=== PATIENT | female | born 1965 | race Caucasian/White ===

== ENCOUNTER 2017-11-04 19:29 | Inpatient (IN) | payer OTHER ==
[2017-11-04 21:37] LABS: ADD MAN DIFF? NO
[2017-11-04] MEDS: LABETALOL HCL 20MG INJ IV ×2 (21:38→22:37)
[2017-11-04] MEDS: CLOPIDOGREL 75 MG TAB PO (21:38)
[2017-11-04 21:39] LABS: BASOPHIL # 0.1 10^3/ul (0.0-0.1); BASOPHILS % 0.6 % (0.0-2.0); EOSINOPHILS # 0.2 10^3/ul (0.0-0.5); EOSINOPHILS % 1.9 % (0.0-7.0); HEMATOCRIT 36.4 % (37.0-47.0); HEMOGLOBIN 12.1 g/dl (12.0-16.0); LYMPHOCYTES # 2.8 10^3/ul (0.8-2.9); LYMPHOCYTES % 26.9 % (15.0-51.0); MEAN CORPUSCULAR HEMOGLOBIN 28.3 pg (29.0-33.0); MEAN CORPUSCULAR HGB CONC 33.2 g/dl (32.0-37.0); MEAN PLATELET VOLUME 11.3 fl (7.4-10.4); MONOCYTE # 0.5 10^3/ul (0.3-0.9); MONOCYTES % 4.7 % (0.0-11.0); NEUTROPHIL # 6.7 10^3/ul (1.6-7.5); NEUTROPHILS % 65.5 % (39.0-77.0); PLATELET COUNT 363 10^3/UL (140-415); RED BLOOD COUNT 4.28 10^6/ul (4.20-5.40); RED CELL DISTRIBUTION WIDTH 14.1 % (11.5-14.5)
[2017-11-04 21:39] LABS: WHITE BLOOD COUNT 10.2 10^3/ul (4.8-10.8)
[2017-11-04 22:06] LABS: ANION GAP 8 (8-16); BLOOD UREA NITROGEN 38 mg/dl (7-20); CALCIUM 7.9 mg/dl (8.4-10.2); CARBON DIOXIDE 24 mmol/L (21-31); CHLORIDE 108 mmol/L (97-110); CREATININE 4.54 mg/dl (0.44-1.00); GLUCOSE 315 mg/dl (70-220); POTASSIUM 3.3 mmol/L (3.5-5.1); SODIUM 137 mmol/L (135-144)
[2017-11-04 22:23] LABS: B-TYPE NATRIURETIC PEPTIDE 8220 PG/ML (0-125); TROPONIN-I 0.018 ng/ml (0.00-0.12)
[2017-11-04] MEDS: hydrALAzine 20 MG INJ IV (23:51)
[2017-11-05] MEDS: SOD CHLORIDE 0.9% 1,000 ML IV (00:50)
[2017-11-05] MEDS ORDERED: NACL 0.9% 3 ML SYG IV (02:00)
[2017-11-05] MEDS ORDERED: GLUCAGON 1 MG INJ IM (02:25)
[2017-11-05] MEDS ORDERED: GLUCOSE GEL 15 GRAM TUBE PO ×2 (02:25)
[2017-11-05] MEDS ORDERED: DEXTROSE 50% 50 ML SYRINGE IV ×2 (02:25)
[2017-11-05] MEDS: POTASSIUM CHLORIDE (SR) 20 MEQ TAB PO ×2 (02:30→09:06)
[2017-11-05] MEDS: hydrALAzine 20 MG INJ IV ×3 (02:35→17:59)
[2017-11-05 04:37] LABS: CREATINE KINASE 606 IU/L (23-200)
[2017-11-05 04:45] LABS: CK INDEX 0.8; CK-MB 4.74 ng/ml (0.0-2.4); TROPONIN-I 0.044 ng/ml (0.00-0.12)
[2017-11-05] MEDS: LEVALBUTEROL (NEB) 0.63 MG/3 ML AMP HHN (05:44)
[2017-11-05 06:00] LABS: ADD MAN DIFF? NO
[2017-11-05 06:06] LABS: BASOPHIL # 0.1 10^3/ul (0.0-0.1); BASOPHILS % 0.8 % (0.0-2.0); EOSINOPHILS # 0.1 10^3/ul (0.0-0.5); EOSINOPHILS % 1.3 % (0.0-7.0); HEMATOCRIT 33.9 % (37.0-47.0); HEMOGLOBIN 11.2 g/dl (12.0-16.0); LYMPHOCYTES # 2.3 10^3/ul (0.8-2.9); LYMPHOCYTES % 27.3 % (15.0-51.0); MEAN CORPUSCULAR HEMOGLOBIN 28.5 pg (29.0-33.0); MEAN CORPUSCULAR VOLUME 86.3 fl (82.0-101.0); MEAN PLATELET VOLUME 11.7 fl (7.4-10.4); MONOCYTE # 0.4 10^3/ul (0.3-0.9); MONOCYTES % 4.9 % (0.0-11.0); NEUTROPHIL # 5.4 10^3/ul (1.6-7.5); NEUTROPHILS % 65.3 % (39.0-77.0); NUCLEATED RED BLOOD CELLS # 0.1 10^3/ul (0.0-0.0); NUCLEATED RED BLOOD CELLS% 0.6 /100WBC (0.0-0.0); PLATELET COUNT 325 10^3/UL (140-415); RED BLOOD COUNT 3.93 10^6/ul (4.20-5.40); RED CELL DISTRIBUTION WIDTH 14.6 % (11.5-14.5)
[2017-11-05 06:06] LABS: WHITE BLOOD COUNT 8.3 10^3/ul (4.8-10.8)
[2017-11-05] MEDS: FUROSEMIDE 40 MG INJ IV (06:22)
[2017-11-05 06:28] LABS: D-DIMER 1927.46 ng/ml (<460)
[2017-11-05 06:46] LABS: ALANINE AMINOTRANSFERASE 30 IU/L (13-69); ALKALINE PHOSPHATASE 121 IU/L (42-121); ANION GAP 10 (8-16); ASPARTATE AMINO TRANSFERASE 25 IU/L (15-46); BILIRUBIN,INDIRECT 0.1 mg/dl (0-1.1); BLOOD UREA NITROGEN 43 mg/dl (7-20); CALCIUM 7.6 mg/dl (8.4-10.2); CARBON DIOXIDE 24 mmol/L (21-31); CHLORIDE 108 mmol/L (97-110); CREATININE 4.42 mg/dl (0.44-1.00); GLUCOSE 340 mg/dl (70-220); MAGNESIUM 2.3 mg/dl (1.7-2.5); POTASSIUM 3.3 mmol/L (3.5-5.1); SODIUM 139 mmol/L (135-144)
[2017-11-05 06:47] LABS: ALBUMIN 2.3 g/dl (3.3-4.9); ALBUMIN/GLOBULIN RATIO 0.79; BILIRUBIN,TOTAL 0.1 mg/dl (0.2-1.3); HDL CHOLESTEROL 39 mg/dl (37-92); TOTAL PROTEIN 5.2 g/dl (6.1-8.1); TRIGLYCERIDES 431 mg/dl (0-149)
[2017-11-05 06:57] LABS: CHOL/HDL RATIO 10.6 RATIO; CHOLESTEROL 414 mg/dl (100-200); LDL CHOLESTEROL,CALCULATED 289 mg/dl
[2017-11-05 07:15] LABS: HEMOGLOBIN A1C 9.2 % (0-5.9)
[2017-11-05 07:23] LABS: OSMOLALITY 312 mOsm/kg (280-295)
[2017-11-05 07:44] LABS: ADD UMIC YES; UR ASCORBIC ACID NEGATIVE (NEGATIVE); UR BILIRUBIN (Dip) NEGATIVE (NEGATIVE); UR BLOOD (Dip) 1+ mg/dL (NEGATIVE); UR CLARITY CLEAR (CLEAR); UR COLOR STRAW (YELLOW); UR GLUCOSE (Dip) 3+ mg/dL (NEGATIVE); UR KETONES (Dip) NEGATIVE (NEGATIVE); UR LEUKOCYTE ESTERASE (Dip) NEGATIVE Leu/ul (NEGATIVE); UR MUCUS FEW /HPF (NONE SEEN); UR NITRITE (Dip) NEGATIVE (NEGATIVE); UR RBC 0 /HPF (0-5); UR TOTAL PROTEIN (Dip) 3+ mg/dl (NEGATIVE); UR UROBILINOGEN (Dip) NEGATIVE (NEGATIVE); UR WBC 1 /HPF (0-5)
[2017-11-05] MEDS ORDERED: INSULIN ASPART [NOVOLOG] 3 ML PEN SC ×2 (07:52)
[2017-11-05 08:02] LABS: SODIUM,URINE RANDOM 75 mmol/L (30-90)
[2017-11-05 08:25] LABS: OSMOLALITY,URINE 308 mOsm/kg (250-1200)
[2017-11-05] MEDS: INSULIN ASPART [NOVOLOG] 3 ML PEN SC ×4 (09:08→21:00)
[2017-11-05 10:42] LABS: CREATINE KINASE 832 IU/L (23-200)
[2017-11-05 10:55] LABS: CK INDEX 1.2; CK-MB 9.82 ng/ml (0.0-2.4)
[2017-11-05 12:08] LABS: ADD MAN DIFF? NO
[2017-11-05 12:16] LABS: WHITE BLOOD COUNT 8.2 10^3/ul (4.8-10.8)
[2017-11-05 12:16] LABS: BASOPHIL # 0.1 10^3/ul (0.0-0.1); EOSINOPHILS # 0.1 10^3/ul (0.0-0.5); EOSINOPHILS % 1.2 % (0.0-7.0); HEMATOCRIT 32.9 % (37.0-47.0); LYMPHOCYTES % 24.6 % (15.0-51.0); MEAN CORPUSCULAR HEMOGLOBIN 28.5 pg (29.0-33.0); MEAN CORPUSCULAR HGB CONC 33.4 g/dl (32.0-37.0); MEAN CORPUSCULAR VOLUME 85.2 fl (82.0-101.0); MEAN PLATELET VOLUME 11.6 fl (7.4-10.4); MONOCYTE # 0.6 10^3/ul (0.3-0.9); MONOCYTES % 7.3 % (0.0-11.0); NEUTROPHIL # 5.4 10^3/ul (1.6-7.5); NEUTROPHILS % 65.5 % (39.0-77.0); PLATELET COUNT 320 10^3/UL (140-415); RED BLOOD COUNT 3.86 10^6/ul (4.20-5.40); RED CELL DISTRIBUTION WIDTH 14.6 % (11.5-14.5)
[2017-11-05 12:44] LABS: INR 0.96; PROTIME 12.9 Sec (11.9-14.9)
[2017-11-05 12:45] LABS: PARTIAL THROMBOPLASTIN TIME 38.3 Sec (25.0-35.0)
[2017-11-05] MEDS: HEPARIN 1000 UNITS/ML 10 ML INJ IV ×2 (12:49→21:03)
[2017-11-05] MEDS: HEPARIN 25000 UNITS/250 ML 250 ML IV (12:57)
[2017-11-05 13:35] LABS: FREE T4 (FREE THYROXINE) 0.89 ng/dl (0.64-1.79)
[2017-11-05 15:30] LABS: UR RBC 1 /HPF (0-5); UR WBC 3 /HPF (0-5)
[2017-11-05 15:30] LABS: CREATININE,URINE RANDOM 63.28 mg/dl (20-320)
[2017-11-05 15:40] LABS: UR BACTERIA FEW /HPF (NONE SEEN)
[2017-11-05] MEDS: FISH OIL 1,000 MG CAP PO (15:49)
[2017-11-05] MEDS: AMLODIPINE 10 MG TAB PO (15:49)
[2017-11-05] MEDS: METOLAZONE 5 MG TAB PO (15:49)
[2017-11-05 19:36] LABS: PARTIAL THROMBOPLASTIN TIME 42.9 Sec (25.0-35.0)
[2017-11-05] MEDS: INSULIN GLARGINE [LANtus] 3 ML PEN SC (20:00)
[2017-11-05] MEDS: ATORVASTATIN 40 MG TAB PO (20:18)
[2017-11-05] MEDS ORDERED: INSULIN GLARGINE HUM REC ANLOG 50 UNIT SQ (21:00)
[2017-11-05] MEDS ORDERED: [UNRECOGNIZED DRUG - OTHER] SQ (21:00)
[2017-11-05] MEDS ORDERED: INSULIN GLARGINE [LANtus] 3 ML PEN SC (21:00)
[2017-11-06] MEDS: ACCU-CHEK XX (02:00)
[2017-11-06 03:57] LABS: ADD MAN DIFF? NO
[2017-11-06 04:16] LABS: WHITE BLOOD COUNT 10.2 10^3/ul (4.8-10.8)
[2017-11-06 04:16] LABS: BASOPHIL # 0.1 10^3/ul (0.0-0.1); BASOPHILS % 0.7 % (0.0-2.0); EOSINOPHILS # 0.3 10^3/ul (0.0-0.5); EOSINOPHILS % 2.4 % (0.0-7.0); HEMOGLOBIN 10.2 g/dl (12.0-16.0); LYMPHOCYTES # 2.8 10^3/ul (0.8-2.9); LYMPHOCYTES % 27.2 % (15.0-51.0); MEAN CORPUSCULAR HEMOGLOBIN 28.6 pg (29.0-33.0); MEAN CORPUSCULAR HGB CONC 32.9 g/dl (32.0-37.0); MEAN CORPUSCULAR VOLUME 86.8 fl (82.0-101.0); MEAN PLATELET VOLUME 11.8 fl (7.4-10.4); MONOCYTE # 0.6 10^3/ul (0.3-0.9); MONOCYTES % 5.5 % (0.0-11.0); NEUTROPHIL # 6.5 10^3/ul (1.6-7.5); PLATELET COUNT 316 10^3/UL (140-415); RED BLOOD COUNT 3.57 10^6/ul (4.20-5.40); RED CELL DISTRIBUTION WIDTH 14.6 % (11.5-14.5)
[2017-11-06 04:24] LABS: ANION GAP 8 (8-16); BLOOD UREA NITROGEN 44 mg/dl (7-20); CALCIUM 7.8 mg/dl (8.4-10.2); CARBON DIOXIDE 22 mmol/L (21-31); CHLORIDE 114 mmol/L (97-110); CREATININE 4.72 mg/dl (0.44-1.00); GLUCOSE 137 mg/dl (70-220); MAGNESIUM 2.3 mg/dl (1.7-2.5); PHOSPHORUS 5.4 mg/dl (2.5-4.9); POTASSIUM 3.4 mmol/L (3.5-5.1); SODIUM 141 mmol/L (135-144)
[2017-11-06] MEDS: INSULIN ASPART [NOVOLOG] 3 ML PEN SC ×4 (07:35→21:00)
[2017-11-06] MEDS: INSULIN GLARGINE [LANtus] 3 ML PEN SC ×2 (08:58→20:00)
[2017-11-06] MEDS: POTASSIUM CHLORIDE (SR) 20 MEQ TAB PO (11:00)
[2017-11-06] MEDS: CLOPIDOGREL 75 MG TAB PO (11:00)
[2017-11-06] MEDS: FISH OIL 1,000 MG CAP PO (11:00)
[2017-11-06] MEDS: FUROSEMIDE 40 MG INJ IV ×2 (11:01→18:10)
[2017-11-06 12:41] LABS: PARTIAL THROMBOPLASTIN TIME 61.1 Sec (25.0-35.0)
[2017-11-06] MEDS: AMLODIPINE 5 MG TAB PO (13:41)
[2017-11-06] MEDS: SEVELAMER 400 MG TAB PO ×2 (13:42→22:24)
[2017-11-06] MEDS: EPOETIN 3000 UNITS/1 ML INJ (ESRD) SC (17:00)
[2017-11-06 20:33] LABS: INR 0.89; PROTIME 12.1 Sec (11.9-14.9); PT RATIO 0.9
[2017-11-06 20:34] LABS: PARTIAL THROMBOPLASTIN TIME 59.5 Sec (25.0-35.0)
[2017-11-06] MEDS: ATORVASTATIN 80 MG TAB PO (22:24)
[2017-11-07] MEDS: ACCU-CHEK XX (01:24)
[2017-11-07] MEDS: HEPARIN 25000 UNITS/250 ML 250 ML IV (05:39)
[2017-11-07] MEDS: FUROSEMIDE 40 MG INJ IV ×2 (05:41→18:27)
[2017-11-07] MEDS: ACETAMINOPHEN 325 MG TAB PO (05:47)
[2017-11-07 06:09] LABS: ADD MAN DIFF? NO
[2017-11-07 06:20] LABS: BASOPHIL # 0.1 10^3/ul (0.0-0.1); BASOPHILS % 0.5 % (0.0-2.0); EOSINOPHILS # 0.2 10^3/ul (0.0-0.5); EOSINOPHILS % 2.5 % (0.0-7.0); HEMATOCRIT 30.7 % (37.0-47.0); LYMPHOCYTES # 3.4 10^3/ul (0.8-2.9); LYMPHOCYTES % 35.8 % (15.0-51.0); MEAN CORPUSCULAR HEMOGLOBIN 28.2 pg (29.0-33.0); MEAN CORPUSCULAR HGB CONC 32.6 g/dl (32.0-37.0); MEAN CORPUSCULAR VOLUME 86.5 fl (82.0-101.0); MEAN PLATELET VOLUME 12.1 fl (7.4-10.4); MONOCYTE # 0.4 10^3/ul (0.3-0.9); MONOCYTES % 4.5 % (0.0-11.0); NEUTROPHIL # 5.3 10^3/ul (1.6-7.5); NEUTROPHILS % 56.5 % (39.0-77.0); PLATELET COUNT 311 10^3/UL (140-415); RED BLOOD COUNT 3.55 10^6/ul (4.20-5.40); RED CELL DISTRIBUTION WIDTH 14.7 % (11.5-14.5)
[2017-11-07 06:20] LABS: WHITE BLOOD COUNT 9.5 10^3/ul (4.8-10.8)
[2017-11-07 06:43] LABS: PARTIAL THROMBOPLASTIN TIME 57.9 Sec (25.0-35.0)
[2017-11-07 06:52] LABS: ANION GAP 9 (8-16); BLOOD UREA NITROGEN 50 mg/dl (7-20); CALCIUM 8.1 mg/dl (8.4-10.2); CARBON DIOXIDE 24 mmol/L (21-31); CHLORIDE 110 mmol/L (97-110); CREATININE 5.15 mg/dl (0.44-1.00); GLUCOSE 109 mg/dl (70-220); MAGNESIUM 2.3 mg/dl (1.7-2.5); PHOSPHORUS 6.3 mg/dl (2.5-4.9); POTASSIUM 3.1 mmol/L (3.5-5.1); SODIUM 140 mmol/L (135-144)
[2017-11-07] MEDS: INSULIN ASPART [NOVOLOG] 3 ML PEN SC ×5 (07:35→21:00)
[2017-11-07] MEDS: AMLODIPINE 5 MG TAB PO (09:29)
[2017-11-07] MEDS: POTASSIUM CHLORIDE (SR) 20 MEQ TAB PO (09:29)
[2017-11-07] MEDS: CLOPIDOGREL 75 MG TAB PO (09:29)
[2017-11-07] MEDS: FISH OIL 1,000 MG CAP PO (09:29)
[2017-11-07] MEDS: SEVELAMER 400 MG TAB PO ×3 (09:29→18:24)
[2017-11-07] MEDS: INSULIN GLARGINE [LANtus] 3 ML PEN SC (09:40)
[2017-11-07 12:13] LABS: PARTIAL THROMBOPLASTIN TIME 68.8 Sec (25.0-35.0)
[2017-11-07] MEDS: HEPARIN 5,000 UNIT/0.5 ML VIAL SC ×2 (16:41→22:14)
[2017-11-07] MEDS ORDERED: HEPARIN 1000 UNITS/ML 10 ML INJ (17:52)
[2017-11-07] MEDS ORDERED: SOD CHLORIDE 0.9% 500 ML (17:52)
[2017-11-07] MEDS ORDERED: LIDOCAINE 1% (MDV) 20 ML INJ (17:52)
[2017-11-07] MEDS ORDERED: morphine 2 MG INJ IV (18:31)
[2017-11-07] MEDS: HYDROCODONE/APAP (5/325) TAB PO (18:55)
[2017-11-07] MEDS: ATORVASTATIN 80 MG TAB PO (22:13)
[2017-11-07] MEDS: ISOSORBIDE MONONITRATE(SR)60 MG TAB PO (22:36)
[2017-11-08] MEDS: ACCU-CHEK XX (02:00)
[2017-11-08] MEDS: HEPARIN 5,000 UNIT/0.5 ML VIAL SC ×3 (05:31→22:22)
[2017-11-08] MEDS: FUROSEMIDE 40 MG INJ IV ×2 (05:31→18:20)
[2017-11-08 06:34] LABS: ADD MAN DIFF? NO
[2017-11-08 06:38] LABS: BASOPHIL # 0.1 10^3/ul (0.0-0.1); BASOPHILS % 0.8 % (0.0-2.0); EOSINOPHILS # 0.2 10^3/ul (0.0-0.5); EOSINOPHILS % 2.6 % (0.0-7.0); HEMATOCRIT 29.1 % (37.0-47.0); HEMOGLOBIN 9.5 g/dl (12.0-16.0); LYMPHOCYTES # 3.2 10^3/ul (0.8-2.9); LYMPHOCYTES % 39.8 % (15.0-51.0); MEAN CORPUSCULAR HEMOGLOBIN 28.4 pg (29.0-33.0); MEAN CORPUSCULAR HGB CONC 32.6 g/dl (32.0-37.0); MEAN CORPUSCULAR VOLUME 87.1 fl (82.0-101.0); MEAN PLATELET VOLUME 12.2 fl (7.4-10.4); MONOCYTE # 0.5 10^3/ul (0.3-0.9); MONOCYTES % 5.8 % (0.0-11.0); NEUTROPHIL # 4.1 10^3/ul (1.6-7.5); NEUTROPHILS % 50.7 % (39.0-77.0); PLATELET COUNT 309 10^3/UL (140-415); RED BLOOD COUNT 3.34 10^6/ul (4.20-5.40); RED CELL DISTRIBUTION WIDTH 14.8 % (11.5-14.5)
[2017-11-08 06:53] LABS: ANION GAP 11 (8-16); BLOOD UREA NITROGEN 53 mg/dl (7-20); CALCIUM 8.3 mg/dl (8.4-10.2); CARBON DIOXIDE 24 mmol/L (21-31); CHLORIDE 108 mmol/L (97-110); GLUCOSE 79 mg/dl (70-220); MAGNESIUM 2.3 mg/dl (1.7-2.5); PHOSPHORUS 7.1 mg/dl (2.5-4.9); POTASSIUM 3.2 mmol/L (3.5-5.1); SODIUM 140 mmol/L (135-144)
[2017-11-08] MEDS: INSULIN ASPART [NOVOLOG] 3 ML PEN SC ×7 (07:21→21:00)
[2017-11-08] MEDS: SEVELAMER 400 MG TAB PO ×3 (08:59→18:19)
[2017-11-08] MEDS: ISOSORBIDE MONONITRATE(SR)60 MG TAB PO (09:00)
[2017-11-08] MEDS: AMLODIPINE 10 MG TAB PO (09:04)
[2017-11-08] MEDS: INSULIN GLARGINE [LANtus] 3 ML PEN SC (09:04)
[2017-11-08] MEDS: CLOPIDOGREL 75 MG TAB PO (10:34)
[2017-11-08] MEDS: FISH OIL 1,000 MG CAP PO (10:34)
[2017-11-08] MEDS: POTASSIUM CHLORIDE (SR) 20 MEQ TAB PO (10:35)
[2017-11-08] MEDS: HYDROCODONE/APAP (5/325) TAB PO (13:40)
[2017-11-08 17:43] LABS: HEPATITIS B SURFACE ANTIBODY NEGATIVE (NEGATIVE)
[2017-11-08 18:22] LABS: HEPATITIS B SURFACE ANTIGEN NEGATIVE (NEGATIVE)
[2017-11-08] MEDS: ATORVASTATIN 80 MG TAB PO (22:20)
[2017-11-08] MEDS: EPOETIN 3000 UNITS/1 ML INJ (ESRD) SC (22:20)
[2017-11-09] MEDS: ACCU-CHEK XX (01:37)
[2017-11-09 05:37] LABS: ADD MAN DIFF? NO; HEMATOCRIT 30.9 % (37.0-47.0); HEMOGLOBIN 10.1 g/dl (12.0-16.0); MEAN CORPUSCULAR HEMOGLOBIN 28.3 pg (29.0-33.0); MEAN CORPUSCULAR HGB CONC 32.7 g/dl (32.0-37.0); MEAN CORPUSCULAR VOLUME 86.6 fl (82.0-101.0); PLATELET COUNT 317 10^3/UL (140-415); RED BLOOD COUNT 3.57 10^6/ul (4.20-5.40); RED CELL DISTRIBUTION WIDTH 14.5 % (11.5-14.5)
[2017-11-09 05:37] LABS: WHITE BLOOD COUNT 10.8 10^3/ul (4.8-10.8)
[2017-11-09] MEDS: FUROSEMIDE 40 MG INJ IV ×2 (05:37→17:02)
[2017-11-09 05:38] LABS: BASOPHIL # 0.1 10^3/ul (0.0-0.1); BASOPHILS % 0.5 % (0.0-2.0); EOSINOPHILS # 0.2 10^3/ul (0.0-0.5); EOSINOPHILS % 1.7 % (0.0-7.0); LYMPHOCYTES # 2.3 10^3/ul (0.8-2.9); LYMPHOCYTES % 21.2 % (15.0-51.0); MEAN PLATELET VOLUME 12.3 fl (7.4-10.4); MONOCYTE # 0.6 10^3/ul (0.3-0.9); MONOCYTES % 5.9 % (0.0-11.0); NEUTROPHIL # 7.6 10^3/ul (1.6-7.5); NEUTROPHILS % 70.5 % (39.0-77.0)
[2017-11-09 05:54] LABS: ANION GAP 9 (8-16); BLOOD UREA NITROGEN 43 mg/dl (7-20); CALCIUM 8.3 mg/dl (8.4-10.2); CARBON DIOXIDE 29 mmol/L (21-31); CHLORIDE 106 mmol/L (97-110); GLUCOSE 68 mg/dl (70-220); SODIUM 141 mmol/L (135-144)
[2017-11-09] MEDS: INSULIN ASPART [NOVOLOG] 3 ML PEN SC ×7 (07:35→20:27)
[2017-11-09] MEDS: HEPARIN 5,000 UNIT/0.5 ML VIAL SC ×3 (07:59→21:24)
[2017-11-09] MEDS: SEVELAMER 400 MG TAB PO ×3 (07:59→16:55)
[2017-11-09] MEDS: CLOPIDOGREL 75 MG TAB PO (08:58)
[2017-11-09] MEDS: AMLODIPINE 10 MG TAB PO (08:59)
[2017-11-09] MEDS: FISH OIL 1,000 MG CAP PO (08:59)
[2017-11-09] MEDS: ISOSORBIDE MONONITRATE(SR)60 MG TAB PO (08:59)
[2017-11-09] MEDS: POTASSIUM CHLORIDE (SR) 20 MEQ TAB PO (10:02)
[2017-11-09] MEDS: INSULIN GLARGINE [LANtus] 3 ML PEN SC (10:03)
[2017-11-09] MEDS: DOCUSATE SODIUM 100 MG CAP PO (16:55)
[2017-11-09] MEDS: ATORVASTATIN 80 MG TAB PO (21:00)
[2017-11-09] MEDS: NIFEdipine (XL) 60 MG TAB PO (21:16)
[2017-11-10] MEDS: ACCU-CHEK XX (01:08)
[2017-11-10] MEDS ORDERED: NITROGLYCERIN (SL) 0.4 MG TAB (04:48)
[2017-11-10] MEDS: NITROGLYCERIN (SL) 0.4 MG TAB SL ×3 (04:50→05:18)
[2017-11-10 05:17] LABS: ADD MAN DIFF? NO
[2017-11-10] MEDS: HYDROCODONE/APAP (5/325) TAB PO (05:21)
[2017-11-10 05:27] LABS: WHITE BLOOD COUNT 9.9 10^3/ul (4.8-10.8)
[2017-11-10 05:27] LABS: BASOPHIL # 0.1 10^3/ul (0.0-0.1); BASOPHILS % 0.6 % (0.0-2.0); EOSINOPHILS # 0.2 10^3/ul (0.0-0.5); EOSINOPHILS % 1.9 % (0.0-7.0); HEMATOCRIT 28.8 % (37.0-47.0); HEMOGLOBIN 9.3 g/dl (12.0-16.0); LYMPHOCYTES # 3.1 10^3/ul (0.8-2.9); LYMPHOCYTES % 31.7 % (15.0-51.0); MEAN CORPUSCULAR HEMOGLOBIN 27.8 pg (29.0-33.0); MEAN CORPUSCULAR HGB CONC 32.3 g/dl (32.0-37.0); MEAN PLATELET VOLUME 12.3 fl (7.4-10.4); MONOCYTE # 0.7 10^3/ul (0.3-0.9); MONOCYTES % 6.6 % (0.0-11.0); NEUTROPHIL # 5.8 10^3/ul (1.6-7.5); NEUTROPHILS % 58.9 % (39.0-77.0); PLATELET COUNT 295 10^3/UL (140-415); RED BLOOD COUNT 3.35 10^6/ul (4.20-5.40); RED CELL DISTRIBUTION WIDTH 14.5 % (11.5-14.5)
[2017-11-10 05:55] LABS: TROPONIN-I 0.672 ng/ml (0.00-0.12)
[2017-11-10 06:11] LABS: ANION GAP 11 (8-16); BLOOD UREA NITROGEN 53 mg/dl (7-20); CALCIUM 8.1 mg/dl (8.4-10.2); CARBON DIOXIDE 29 mmol/L (21-31); CHLORIDE 103 mmol/L (97-110); CREATININE 5.16 mg/dl (0.44-1.00); GLUCOSE 145 mg/dl (70-220); POTASSIUM 3.6 mmol/L (3.5-5.1); SODIUM 139 mmol/L (135-144)
[2017-11-10] MEDS: LORAZEPAM 2 MG INJ IV (06:34)
[2017-11-10] MEDS: FUROSEMIDE 40 MG INJ IV ×2 (06:35→17:31)
[2017-11-10] MEDS: HEPARIN 5,000 UNIT/0.5 ML VIAL SC ×4 (06:41→22:43)
[2017-11-10] MEDS: SEVELAMER 400 MG TAB PO ×3 (08:15→17:30)
[2017-11-10] MEDS: INSULIN ASPART [NOVOLOG] 3 ML PEN SC ×7 (08:15→21:00)
[2017-11-10] MEDS: INSULIN GLARGINE [LANtus] 3 ML PEN SC (09:43)
[2017-11-10] MEDS: CLOPIDOGREL 75 MG TAB PO (12:00)
[2017-11-10] MEDS: FISH OIL 1,000 MG CAP PO (12:00)
[2017-11-10] MEDS: ISOSORBIDE MONONITRATE(SR)60 MG TAB PO (12:00)
[2017-11-10] MEDS: NIFEdipine (XL) 60 MG TAB PO ×2 (12:01→21:15)
[2017-11-10] MEDS: ACETAMINOPHEN 325 MG TAB PO (12:43)
[2017-11-10 12:57] LABS: CK-MB 1.65 ng/ml (0.0-2.4)
[2017-11-10 13:33] LABS: TROPONIN-I 0.516 ng/ml (0.00-0.12)
[2017-11-10] MEDS: BISACODYL (EC) 5 MG TAB PO (19:27)
[2017-11-10] MEDS: POLYETHYLENE GLYCOL 17 GM PACKET PO (19:27)
[2017-11-10] MEDS: ATORVASTATIN 80 MG TAB PO (21:14)
[2017-11-11] MEDS: ACCU-CHEK XX (02:00)
[2017-11-11 05:12] LABS: ADD MAN DIFF? NO
[2017-11-11 05:15] LABS: BASOPHIL # 0.1 10^3/ul (0.0-0.1); BASOPHILS % 0.5 % (0.0-2.0); EOSINOPHILS # 0.2 10^3/ul (0.0-0.5); HEMATOCRIT 29.8 % (37.0-47.0); HEMOGLOBIN 9.7 g/dl (12.0-16.0); LYMPHOCYTES # 2.8 10^3/ul (0.8-2.9); LYMPHOCYTES % 26.3 % (15.0-51.0); MEAN CORPUSCULAR HEMOGLOBIN 28.3 pg (29.0-33.0); MEAN CORPUSCULAR HGB CONC 32.6 g/dl (32.0-37.0); MEAN CORPUSCULAR VOLUME 86.9 fl (82.0-101.0); MEAN PLATELET VOLUME 12.3 fl (7.4-10.4); MONOCYTE # 0.8 10^3/ul (0.3-0.9); MONOCYTES % 7.8 % (0.0-11.0); NEUTROPHIL # 6.7 10^3/ul (1.6-7.5); NEUTROPHILS % 63.1 % (39.0-77.0); PLATELET COUNT 321 10^3/UL (140-415); RED BLOOD COUNT 3.43 10^6/ul (4.20-5.40); RED CELL DISTRIBUTION WIDTH 14.1 % (11.5-14.5)
[2017-11-11 05:15] LABS: WHITE BLOOD COUNT 10.6 10^3/ul (4.8-10.8)
[2017-11-11 05:35] LABS: ANION GAP 10 (8-16); BLOOD UREA NITROGEN 56 mg/dl (7-20); CALCIUM 7.9 mg/dl (8.4-10.2); CARBON DIOXIDE 31 mmol/L (21-31); CHLORIDE 104 mmol/L (97-110); CREATININE 5.72 mg/dl (0.44-1.00); GLUCOSE 120 mg/dl (70-220); POTASSIUM 3.5 mmol/L (3.5-5.1); SODIUM 141 mmol/L (135-144)
[2017-11-11] MEDS: FUROSEMIDE 40 MG INJ IV ×2 (05:59→18:03)
[2017-11-11] MEDS: HEPARIN 5,000 UNIT/0.5 ML VIAL SC ×3 (06:00→22:53)
[2017-11-11] MEDS: INSULIN ASPART [NOVOLOG] 3 ML PEN SC ×7 (07:35→21:00)
[2017-11-11] MEDS: SEVELAMER 400 MG TAB PO ×3 (07:35→18:04)
[2017-11-11] MEDS: INSULIN GLARGINE [LANtus] 3 ML PEN SC ×2 (08:00)
[2017-11-11] MEDS: CLOPIDOGREL 75 MG TAB PO (08:53)
[2017-11-11] MEDS: FISH OIL 1,000 MG CAP PO (08:53)
[2017-11-11] MEDS: ISOSORBIDE MONONITRATE(SR)60 MG TAB PO (09:04)
[2017-11-11] MEDS: NIFEdipine (XL) 60 MG TAB PO ×2 (09:05→21:00)
[2017-11-11] MEDS: HYDROCODONE/APAP (5/325) TAB PO ×2 (12:06→19:03)
[2017-11-11] MEDS: EPOETIN 3000 UNITS/1 ML INJ (ESRD) SC (18:04)
[2017-11-11] MEDS: ONDANSETRON 4 MG INJ IV (21:05)
[2017-11-11] MEDS: ATORVASTATIN 80 MG TAB PO ×2 (22:48→23:45)
[2017-11-11] MEDS: HEPARIN 1000 UNITS/ML 10 ML INJ CATHETER (23:38)
[2017-11-12] MEDS: SUMATRIPTAN 6 MG/0.5 ML INJ SC (00:34)
[2017-11-12] MEDS: ACCU-CHEK XX (01:56)
[2017-11-12] MEDS: HEPARIN 5,000 UNIT/0.5 ML VIAL SC ×3 (04:44→21:42)
[2017-11-12] MEDS: ONDANSETRON 4 MG INJ IV (04:50)
[2017-11-12] MEDS: HYDROCODONE/APAP (5/325) TAB PO ×2 (04:50→21:31)
[2017-11-12] MEDS: FUROSEMIDE 40 MG INJ IV ×2 (05:52→18:00)
[2017-11-12] MEDS: INSULIN ASPART [NOVOLOG] 3 ML PEN SC ×7 (08:00→21:00)
[2017-11-12] MEDS: NIFEdipine (XL) 60 MG TAB PO ×2 (09:16→21:33)
[2017-11-12] MEDS: ISOSORBIDE MONONITRATE(SR)60 MG TAB PO (09:16)
[2017-11-12] MEDS: CLOPIDOGREL 75 MG TAB PO (09:16)
[2017-11-12] MEDS: FISH OIL 1,000 MG CAP PO (09:17)
[2017-11-12] MEDS: INSULIN GLARGINE [LANtus] 3 ML PEN SC (09:24)
[2017-11-12 09:51] LABS: ADD MAN DIFF? NO
[2017-11-12 09:59] LABS: WHITE BLOOD COUNT 9.3 10^3/ul (4.8-10.8)
[2017-11-12 09:59] LABS: BASOPHIL # 0.1 10^3/ul (0.0-0.1); BASOPHILS % 0.5 % (0.0-2.0); EOSINOPHILS % 0.4 % (0.0-7.0); HEMATOCRIT 30.9 % (37.0-47.0); LYMPHOCYTES # 2.1 10^3/ul (0.8-2.9); MEAN CORPUSCULAR HEMOGLOBIN 28.2 pg (29.0-33.0); MEAN CORPUSCULAR HGB CONC 32.4 g/dl (32.0-37.0); MEAN CORPUSCULAR VOLUME 87.3 fl (82.0-101.0); MEAN PLATELET VOLUME 12.1 fl (7.4-10.4); MONOCYTE # 0.6 10^3/ul (0.3-0.9); MONOCYTES % 5.9 % (0.0-11.0); NEUTROPHIL # 6.5 10^3/ul (1.6-7.5); PLATELET COUNT 376 10^3/UL (140-415); RED BLOOD COUNT 3.54 10^6/ul (4.20-5.40); RED CELL DISTRIBUTION WIDTH 14.2 % (11.5-14.5)
[2017-11-12 10:15] LABS: ANION GAP 13 (8-16); BLOOD UREA NITROGEN 38 mg/dl (7-20); CALCIUM 8.3 mg/dl (8.4-10.2); CARBON DIOXIDE 28 mmol/L (21-31); CHLORIDE 104 mmol/L (97-110); CREATININE 4.59 mg/dl (0.44-1.00); GLUCOSE 130 mg/dl (70-220); POTASSIUM 3.8 mmol/L (3.5-5.1); SODIUM 141 mmol/L (135-144)
[2017-11-12] MEDS: SEVELAMER 400 MG TAB PO ×3 (10:36→18:00)
[2017-11-12] MEDS: BISACODYL (EC) 5 MG TAB PO (13:10)
[2017-11-12] MEDS: ATORVASTATIN 80 MG TAB PO (21:31)
[2017-11-12] MEDS: SENNA TAB PO (21:32)
[2017-11-13] MEDS: ACCU-CHEK XX (02:00)
[2017-11-13] MEDS: FUROSEMIDE 40 MG INJ IV ×2 (06:23→17:56)
[2017-11-13] MEDS: HEPARIN 5,000 UNIT/0.5 ML VIAL SC ×3 (06:34→22:05)
[2017-11-13] MEDS: ONDANSETRON 4 MG INJ IV ×2 (06:45→17:56)
[2017-11-13] MEDS: INSULIN ASPART [NOVOLOG] 3 ML PEN SC ×7 (08:00→21:00)
[2017-11-13] MEDS: INSULIN GLARGINE [LANtus] 3 ML PEN SC (08:10)
[2017-11-13 09:04] LABS: ADD MAN DIFF? NO
[2017-11-13 09:09] LABS: BASOPHIL # 0.1 10^3/ul (0.0-0.1); BASOPHILS % 0.7 % (0.0-2.0); EOSINOPHILS # 0.2 10^3/ul (0.0-0.5); EOSINOPHILS % 2.1 % (0.0-7.0); HEMATOCRIT 30.5 % (37.0-47.0); HEMOGLOBIN 9.8 g/dl (12.0-16.0); LYMPHOCYTES # 2.6 10^3/ul (0.8-2.9); LYMPHOCYTES % 24.4 % (15.0-51.0); MEAN CORPUSCULAR HEMOGLOBIN 28.2 pg (29.0-33.0); MEAN CORPUSCULAR HGB CONC 32.1 g/dl (32.0-37.0); MEAN CORPUSCULAR VOLUME 87.6 fl (82.0-101.0); MEAN PLATELET VOLUME 12.3 fl (7.4-10.4); NEUTROPHIL # 6.7 10^3/ul (1.6-7.5); NEUTROPHILS % 63.4 % (39.0-77.0); PLATELET COUNT 347 10^3/UL (140-415); RED BLOOD COUNT 3.48 10^6/ul (4.20-5.40); RED CELL DISTRIBUTION WIDTH 14.1 % (11.5-14.5)
[2017-11-13 09:09] LABS: WHITE BLOOD COUNT 10.5 10^3/ul (4.8-10.8)
[2017-11-13] MEDS: SEVELAMER 400 MG TAB PO ×3 (09:13→17:53)
[2017-11-13] MEDS: NIFEdipine (XL) 60 MG TAB PO ×2 (09:14→22:00)
[2017-11-13] MEDS: CLOPIDOGREL 75 MG TAB PO (09:14)
[2017-11-13] MEDS: FISH OIL 1,000 MG CAP PO (09:14)
[2017-11-13] MEDS: ISOSORBIDE MONONITRATE(SR)60 MG TAB PO (09:14)
[2017-11-13] MEDS: SENNA TAB PO ×2 (09:14→21:00)
[2017-11-13] MEDS: POLYETHYLENE GLYCOL 17 GM PACKET PO (09:15)
[2017-11-13 09:33] LABS: ANION GAP 12 (8-16); BLOOD UREA NITROGEN 46 mg/dl (7-20); CALCIUM 7.9 mg/dl (8.4-10.2); CARBON DIOXIDE 30 mmol/L (21-31); CHLORIDE 103 mmol/L (97-110); CREATININE 5.14 mg/dl (0.44-1.00); GLUCOSE 132 mg/dl (70-220); SODIUM 141 mmol/L (135-144)
[2017-11-13 09:38] LABS: PHOSPHORUS 6.1 mg/dl (2.5-4.9)
[2017-11-13 09:38] LABS: MAGNESIUM 2.2 mg/dl (1.7-2.5)
[2017-11-13] MEDS: HEPARIN 1000 UNITS/ML 10 ML INJ CATHETER (15:13)
[2017-11-13] MEDS: ACETAMINOPHEN 325 MG TAB PO (17:53)
[2017-11-13] MEDS: EPOETIN 3000 UNITS/1 ML INJ (ESRD) SC (17:55)
[2017-11-13] MEDS: ATORVASTATIN 80 MG TAB PO (22:01)
[2017-11-14] MEDS: ACCU-CHEK XX (02:00)
[2017-11-14] MEDS: FUROSEMIDE 40 MG INJ IV (05:57)
[2017-11-14] MEDS: HEPARIN 5,000 UNIT/0.5 ML VIAL SC ×3 (06:04→22:09)
[2017-11-14] MEDS: BISACODYL (EC) 5 MG TAB PO (06:11)
[2017-11-14] MEDS: DOCUSATE SODIUM 100 MG CAP PO (06:11)
[2017-11-14 06:48] LABS: ADD MAN DIFF? NO
[2017-11-14 06:59] LABS: WHITE BLOOD COUNT 9.8 10^3/ul (4.8-10.8)
[2017-11-14 06:59] LABS: BASOPHIL # 0.1 10^3/ul (0.0-0.1); BASOPHILS % 0.6 % (0.0-2.0); EOSINOPHILS # 0.2 10^3/ul (0.0-0.5); EOSINOPHILS % 2.1 % (0.0-7.0); HEMATOCRIT 29.4 % (37.0-47.0); HEMOGLOBIN 9.3 g/dl (12.0-16.0); LYMPHOCYTES # 2.8 10^3/ul (0.8-2.9); LYMPHOCYTES % 28.6 % (15.0-51.0); MEAN CORPUSCULAR HEMOGLOBIN 27.8 pg (29.0-33.0); MEAN CORPUSCULAR HGB CONC 31.6 g/dl (32.0-37.0); MEAN CORPUSCULAR VOLUME 87.8 fl (82.0-101.0); MEAN PLATELET VOLUME 12.1 fl (7.4-10.4); MONOCYTE # 0.8 10^3/ul (0.3-0.9); MONOCYTES % 8.3 % (0.0-11.0); NEUTROPHIL # 5.9 10^3/ul (1.6-7.5); NEUTROPHILS % 60.1 % (39.0-77.0); PLATELET COUNT 337 10^3/UL (140-415); RED BLOOD COUNT 3.35 10^6/ul (4.20-5.40); RED CELL DISTRIBUTION WIDTH 13.9 % (11.5-14.5)
[2017-11-14 07:15] LABS: ANION GAP 11 (8-16); BLOOD UREA NITROGEN 27 mg/dl (7-20); CARBON DIOXIDE 33 mmol/L (21-31); CHLORIDE 100 mmol/L (97-110); CREATININE 4.21 mg/dl (0.44-1.00); GLUCOSE 116 mg/dl (70-220); POTASSIUM 3.7 mmol/L (3.5-5.1); SODIUM 140 mmol/L (135-144)
[2017-11-14] MEDS: INSULIN ASPART [NOVOLOG] 3 ML PEN SC ×7 (08:00→21:00)
[2017-11-14] MEDS: POLYETHYLENE GLYCOL 17 GM PACKET PO (08:51)
[2017-11-14] MEDS: SEVELAMER 400 MG TAB PO ×3 (08:51→17:15)
[2017-11-14] MEDS: CLOPIDOGREL 75 MG TAB PO (08:51)
[2017-11-14] MEDS: NIFEdipine (XL) 60 MG TAB PO ×2 (08:52→22:01)
[2017-11-14] MEDS: FISH OIL 1,000 MG CAP PO (08:52)
[2017-11-14] MEDS: SENNA TAB PO ×2 (08:52→22:01)
[2017-11-14] MEDS: ISOSORBIDE MONONITRATE(SR)60 MG TAB PO (08:53)
[2017-11-14] MEDS: INSULIN GLARGINE [LANtus] 3 ML PEN SC (08:55)
[2017-11-14] MEDS: ATORVASTATIN 80 MG TAB PO (22:00)
[2017-11-15] MEDS: ACCU-CHEK XX (02:00)
[2017-11-15] MEDS: HEPARIN 5,000 UNIT/0.5 ML VIAL SC ×3 (05:35→22:39)
[2017-11-15] MEDS: INSULIN GLARGINE [LANtus] 3 ML PEN SC (08:00)
[2017-11-15] MEDS: INSULIN ASPART [NOVOLOG] 3 ML PEN SC ×7 (08:00→19:35)
[2017-11-15] MEDS: SEVELAMER 400 MG TAB PO ×3 (08:00→17:16)
[2017-11-15] MEDS: HEPARIN 1000 UNITS/ML 10 ML INJ CATHETER (10:50)
[2017-11-15] MEDS: POLYETHYLENE GLYCOL 17 GM PACKET PO (11:30)
[2017-11-15] MEDS: SENNA TAB PO ×2 (11:32→20:09)
[2017-11-15] MEDS: FISH OIL 1,000 MG CAP PO (11:33)
[2017-11-15] MEDS: ISOSORBIDE MONONITRATE(SR)60 MG TAB PO (11:33)
[2017-11-15] MEDS: NIFEdipine (XL) 60 MG TAB PO ×2 (11:33→20:10)
[2017-11-15] MEDS: CLOPIDOGREL 75 MG TAB PO (11:33)
[2017-11-15 11:55] LABS: ADD MAN DIFF? NO
[2017-11-15 11:56] LABS: BASOPHILS % 0.4 % (0.0-2.0); EOSINOPHILS # 0.2 10^3/ul (0.0-0.5); EOSINOPHILS % 1.9 % (0.0-7.0); HEMATOCRIT 32.1 % (37.0-47.0); HEMOGLOBIN 10.4 g/dl (12.0-16.0); LYMPHOCYTES # 1.8 10^3/ul (0.8-2.9); LYMPHOCYTES % 18.5 % (15.0-51.0); MEAN CORPUSCULAR HEMOGLOBIN 28.3 pg (29.0-33.0); MEAN CORPUSCULAR HGB CONC 32.4 g/dl (32.0-37.0); MEAN CORPUSCULAR VOLUME 87.5 fl (82.0-101.0); MEAN PLATELET VOLUME 11.7 fl (7.4-10.4); MONOCYTE # 0.8 10^3/ul (0.3-0.9); MONOCYTES % 8.4 % (0.0-11.0); NEUTROPHIL # 6.9 10^3/ul (1.6-7.5); NEUTROPHILS % 70.5 % (39.0-77.0); PLATELET COUNT 361 10^3/UL (140-415); RED BLOOD COUNT 3.67 10^6/ul (4.20-5.40); RED CELL DISTRIBUTION WIDTH 13.2 % (11.5-14.5)
[2017-11-15 11:56] LABS: WHITE BLOOD COUNT 9.8 10^3/ul (4.8-10.8)
[2017-11-15 12:19] LABS: ANION GAP 13 (8-16); BLOOD UREA NITROGEN 17 mg/dl (7-20); CALCIUM 8.1 mg/dl (8.4-10.2); CARBON DIOXIDE 32 mmol/L (21-31); CHLORIDE 100 mmol/L (97-110); CREATININE 3.19 mg/dl (0.44-1.00); GLUCOSE 133 mg/dl (70-220); POTASSIUM 3.5 mmol/L (3.5-5.1); SODIUM 141 mmol/L (135-144)
[2017-11-15] MEDS: ONDANSETRON 4 MG INJ IV (14:04)
[2017-11-15] MEDS: EPOETIN 3000 UNITS/1 ML INJ (ESRD) SC (16:54)
[2017-11-15] MEDS: ATORVASTATIN 80 MG TAB PO (20:09)
[2017-11-16] MEDS: ACCU-CHEK XX (02:00)
[2017-11-16] MEDS: HEPARIN 5,000 UNIT/0.5 ML VIAL SC ×3 (06:21→21:43)
[2017-11-16] MEDS: INSULIN ASPART [NOVOLOG] 3 ML PEN SC ×7 (07:54→21:00)
[2017-11-16] MEDS: SEVELAMER 400 MG TAB PO ×3 (07:56→17:13)
[2017-11-16] MEDS: INSULIN GLARGINE [LANtus] 3 ML PEN SC (07:58)
[2017-11-16] MEDS: NIFEdipine (XL) 60 MG TAB PO ×2 (09:25→21:31)
[2017-11-16] MEDS: FISH OIL 1,000 MG CAP PO (09:25)
[2017-11-16] MEDS: CLOPIDOGREL 75 MG TAB PO (09:25)
[2017-11-16] MEDS: POLYETHYLENE GLYCOL 17 GM PACKET PO (09:26)
[2017-11-16] MEDS: SENNA TAB PO ×2 (09:26→21:31)
[2017-11-16] MEDS: ISOSORBIDE MONONITRATE(SR)60 MG TAB PO (09:26)
[2017-11-16] MEDS: ACETAMINOPHEN 325 MG TAB PO ×2 (12:48→18:21)
[2017-11-16] MEDS: ATORVASTATIN 80 MG TAB PO (21:33)
[2017-11-17] MEDS: ACCU-CHEK XX (02:00)
[2017-11-17 02:36] LABS: ADD UMIC YES; UR ASCORBIC ACID NEGATIVE (NEGATIVE); UR BILIRUBIN (Dip) NEGATIVE (NEGATIVE); UR BLOOD (Dip) NEGATIVE (NEGATIVE); UR BUDDING YEAST FEW /HPF (NONE SEEN); UR CLARITY SLIGHTLY CLOUDY (CLEAR); UR COLOR YELLOW (YELLOW); UR GLUCOSE (Dip) 2+ mg/dL (NEGATIVE); UR KETONES (Dip) NEGATIVE (NEGATIVE); UR LEUKOCYTE ESTERASE (Dip) NEGATIVE Leu/ul (NEGATIVE); UR NITRITE (Dip) NEGATIVE (NEGATIVE); UR RBC 0 /HPF (0-5); UR SPECIFIC GRAVITY (Dip) 1.013 (1.003-1.030); UR SQUAMOUS EPITHELIAL CELL FEW /HPF (FEW); UR TOTAL PROTEIN (Dip) 3+ mg/dl (NEGATIVE); UR UROBILINOGEN (Dip) NEGATIVE (NEGATIVE); UR WBC 4 /HPF (0-5)
[2017-11-17] MEDS: HEPARIN 5,000 UNIT/0.5 ML VIAL SC ×3 (06:07→22:27)
[2017-11-17] MEDS: INSULIN GLARGINE [LANtus] 3 ML PEN SC (08:17)
[2017-11-17] MEDS: INSULIN ASPART [NOVOLOG] 3 ML PEN SC ×7 (08:17→20:41)
[2017-11-17] MEDS: POLYETHYLENE GLYCOL 17 GM PACKET PO (08:18)
[2017-11-17] MEDS: SENNA TAB PO ×2 (08:18→20:37)
[2017-11-17] MEDS: CLOPIDOGREL 75 MG TAB PO (08:18)
[2017-11-17] MEDS: SEVELAMER 400 MG TAB PO ×3 (08:18→17:44)
[2017-11-17] MEDS: FISH OIL 1,000 MG CAP PO (08:18)
[2017-11-17] MEDS: NIFEdipine (XL) 60 MG TAB PO ×2 (08:19→20:37)
[2017-11-17] MEDS: ISOSORBIDE MONONITRATE(SR)60 MG TAB PO (08:19)
[2017-11-17 08:58] LABS: ADD MAN DIFF? NO
[2017-11-17 08:59] LABS: BASOPHILS % 0.7 % (0.0-2.0); EOSINOPHILS % 1.8 % (0.0-7.0); HEMATOCRIT 27.6 % (37.0-47.0); HEMOGLOBIN 8.9 g/dl (12.0-16.0); LYMPHOCYTES # 2.5 10^3/ul (0.8-2.9); LYMPHOCYTES % 24.4 % (15.0-51.0); MEAN CORPUSCULAR HEMOGLOBIN 27.8 pg (29.0-33.0); MEAN CORPUSCULAR HGB CONC 32.2 g/dl (32.0-37.0); MEAN CORPUSCULAR VOLUME 86.3 fl (82.0-101.0); MEAN PLATELET VOLUME 11.9 fl (7.4-10.4); MONOCYTES % 10.5 % (0.0-11.0); NEUTROPHIL # 6.2 10^3/ul (1.6-7.5); NEUTROPHILS % 62.1 % (39.0-77.0); PLATELET COUNT 320 10^3/UL (140-415); RED CELL DISTRIBUTION WIDTH 13.4 % (11.5-14.5)
[2017-11-17 08:59] LABS: WHITE BLOOD COUNT 10.1 10^3/ul (4.8-10.8)
[2017-11-17 09:00] LABS: BASOPHIL # 0.1 10^3/ul (0.0-0.1); EOSINOPHILS # 0.2 10^3/ul (0.0-0.5); MONOCYTE # 1.1 10^3/ul (0.3-0.9)
[2017-11-17 09:29] LABS: ANION GAP 11 (8-16); BLOOD UREA NITROGEN 32 mg/dl (7-20); CALCIUM 7.9 mg/dl (8.4-10.2); CARBON DIOXIDE 29 mmol/L (21-31); CHLORIDE 101 mmol/L (97-110); CREATININE 5.38 mg/dl (0.44-1.00); GLUCOSE 147 mg/dl (70-220); POTASSIUM 3.7 mmol/L (3.5-5.1); SODIUM 137 mmol/L (135-144)
[2017-11-17] MEDS: ACETAMINOPHEN 325 MG TAB PO (12:59)
[2017-11-17] MEDS: ATORVASTATIN 80 MG TAB PO (20:37)
[2017-11-18] MEDS: ACETAMINOPHEN 325 MG TAB PO ×2 (01:08→22:26)
[2017-11-18] MEDS: ACCU-CHEK XX (02:00)
[2017-11-18 05:10] LABS: ADD MAN DIFF? NO
[2017-11-18 05:17] LABS: WHITE BLOOD COUNT 9.2 10^3/ul (4.8-10.8)
[2017-11-18 05:17] LABS: BASOPHIL # 0.1 10^3/ul (0.0-0.1); BASOPHILS % 0.7 % (0.0-2.0); EOSINOPHILS # 0.2 10^3/ul (0.0-0.5); HEMATOCRIT 26.3 % (37.0-47.0); HEMOGLOBIN 8.7 g/dl (12.0-16.0); LYMPHOCYTES # 2.7 10^3/ul (0.8-2.9); LYMPHOCYTES % 29.7 % (15.0-51.0); MEAN CORPUSCULAR HEMOGLOBIN 27.8 pg (29.0-33.0); MEAN CORPUSCULAR HGB CONC 33.1 g/dl (32.0-37.0); MONOCYTE # 0.9 10^3/ul (0.3-0.9); MONOCYTES % 9.7 % (0.0-11.0); NEUTROPHIL # 5.3 10^3/ul (1.6-7.5); NEUTROPHILS % 57.7 % (39.0-77.0); PLATELET COUNT 320 10^3/UL (140-415); RED BLOOD COUNT 3.13 10^6/ul (4.20-5.40); RED CELL DISTRIBUTION WIDTH 13.3 % (11.5-14.5)
[2017-11-18 05:41] LABS: ANION GAP 12 (8-16); BLOOD UREA NITROGEN 37 mg/dl (7-20); CALCIUM 7.6 mg/dl (8.4-10.2); CARBON DIOXIDE 25 mmol/L (21-31); CHLORIDE 101 mmol/L (97-110); CREATININE 5.69 mg/dl (0.44-1.00); GLUCOSE 94 mg/dl (70-220); POTASSIUM 3.4 mmol/L (3.5-5.1); SODIUM 135 mmol/L (135-144)
[2017-11-18] MEDS: HEPARIN 5,000 UNIT/0.5 ML VIAL SC ×2 (06:19→21:09)
[2017-11-18] MEDS: INSULIN ASPART [NOVOLOG] 3 ML PEN SC ×7 (07:50→21:00)
[2017-11-18] MEDS: SEVELAMER 400 MG TAB PO ×3 (08:32→17:59)
[2017-11-18] MEDS: CLOPIDOGREL 75 MG TAB PO (08:32)
[2017-11-18] MEDS: POTASSIUM CHLORIDE (SR) 20 MEQ TAB PO (08:32)
[2017-11-18] MEDS: SENNA TAB PO ×2 (08:32→21:00)
[2017-11-18] MEDS: ISOSORBIDE MONONITRATE(SR)60 MG TAB PO (08:33)
[2017-11-18] MEDS: FISH OIL 1,000 MG CAP PO (08:33)
[2017-11-18] MEDS: NIFEdipine (XL) 60 MG TAB PO ×2 (08:34→21:04)
[2017-11-18] MEDS: POLYETHYLENE GLYCOL 17 GM PACKET PO (08:35)
[2017-11-18] MEDS: INSULIN GLARGINE [LANtus] 3 ML PEN SC (08:42)
[2017-11-18] MEDS: ONDANSETRON 4 MG INJ IV (11:11)
[2017-11-18] MEDS: HEPARIN 1000 UNITS/ML 10 ML INJ CATHETER (14:24)
[2017-11-18] MEDS: EPOETIN 3000 UNITS/1 ML INJ (ESRD) SC (16:32)
[2017-11-18] MEDS: ATORVASTATIN 80 MG TAB PO (21:04)
[2017-11-18] MEDS: GLUCOSE GEL 15 GRAM TUBE BUCCAL (21:29)
[2017-11-19] MEDS: ACCU-CHEK XX (02:34)
[2017-11-19 05:16] LABS: ADD MAN DIFF? NO
[2017-11-19 05:21] LABS: BASOPHIL # 0.1 10^3/ul (0.0-0.1); BASOPHILS % 0.6 % (0.0-2.0); EOSINOPHILS # 0.1 10^3/ul (0.0-0.5); EOSINOPHILS % 1.1 % (0.0-7.0); HEMATOCRIT 27.9 % (37.0-47.0); HEMOGLOBIN 9.2 g/dl (12.0-16.0); LYMPHOCYTES # 3.4 10^3/ul (0.8-2.9); MEAN CORPUSCULAR VOLUME 85.1 fl (82.0-101.0); MEAN PLATELET VOLUME 12.2 fl (7.4-10.4); MONOCYTE # 0.9 10^3/ul (0.3-0.9); MONOCYTES % 9.9 % (0.0-11.0); NEUTROPHIL # 4.9 10^3/ul (1.6-7.5); NEUTROPHILS % 52.2 % (39.0-77.0); PLATELET COUNT 321 10^3/UL (140-415); RED BLOOD COUNT 3.28 10^6/ul (4.20-5.40); RED CELL DISTRIBUTION WIDTH 13.5 % (11.5-14.5)
[2017-11-19 05:21] LABS: WHITE BLOOD COUNT 9.4 10^3/ul (4.8-10.8)
[2017-11-19 05:36] LABS: MAGNESIUM 1.9 mg/dl (1.7-2.5)
[2017-11-19 05:36] LABS: PHOSPHORUS 3.2 mg/dl (2.5-4.9)
[2017-11-19 05:43] LABS: ANION GAP 13 (8-16); BLOOD UREA NITROGEN 27 mg/dl (7-20); CALCIUM 7.6 mg/dl (8.4-10.2); CARBON DIOXIDE 27 mmol/L (21-31); CHLORIDE 101 mmol/L (97-110); GLUCOSE 122 mg/dl (70-220); POTASSIUM 3.9 mmol/L (3.5-5.1); SODIUM 137 mmol/L (135-144)
[2017-11-19] MEDS: INSULIN ASPART [NOVOLOG] 3 ML PEN SC ×7 (07:50→20:56)
[2017-11-19] MEDS: HEPARIN 5,000 UNIT/0.5 ML VIAL SC ×2 (08:48→20:45)
[2017-11-19] MEDS: FISH OIL 1,000 MG CAP PO (08:48)
[2017-11-19] MEDS: SENNA TAB PO ×2 (08:51→20:39)
[2017-11-19] MEDS: NIFEdipine (XL) 60 MG TAB PO ×2 (08:51→20:40)
[2017-11-19] MEDS: CLOPIDOGREL 75 MG TAB PO (08:51)
[2017-11-19] MEDS: POLYETHYLENE GLYCOL 17 GM PACKET PO (08:51)
[2017-11-19] MEDS: SEVELAMER 400 MG TAB PO ×3 (08:51→18:14)
[2017-11-19] MEDS: ISOSORBIDE MONONITRATE(SR)60 MG TAB PO (08:52)
[2017-11-19] MEDS: INSULIN GLARGINE [LANtus] 3 ML PEN SC (09:26)
[2017-11-19] MEDS: ATORVASTATIN 80 MG TAB PO (20:39)
[2017-11-19] MEDS: GUAIFENESIN/DM 5ML CUP PO (20:48)
[2017-11-20] MEDS: ACCU-CHEK XX ×2 (00:09→23:33)
[2017-11-20 06:02] LABS: ADD MAN DIFF? NO
[2017-11-20 06:10] LABS: BASOPHIL # 0.1 10^3/ul (0.0-0.1); BASOPHILS % 0.5 % (0.0-2.0); EOSINOPHILS # 0.3 10^3/ul (0.0-0.5); EOSINOPHILS % 2.3 % (0.0-7.0); HEMATOCRIT 28.2 % (37.0-47.0); HEMOGLOBIN 9.1 g/dl (12.0-16.0); LYMPHOCYTES # 3.3 10^3/ul (0.8-2.9); LYMPHOCYTES % 29.7 % (15.0-51.0); MEAN CORPUSCULAR HEMOGLOBIN 27.7 pg (29.0-33.0); MEAN CORPUSCULAR HGB CONC 32.3 g/dl (32.0-37.0); MEAN PLATELET VOLUME 12.3 fl (7.4-10.4); NEUTROPHIL # 6.4 10^3/ul (1.6-7.5); PLATELET COUNT 323 10^3/UL (140-415); RED BLOOD COUNT 3.28 10^6/ul (4.20-5.40); RED CELL DISTRIBUTION WIDTH 13.6 % (11.5-14.5)
[2017-11-20 06:10] LABS: WHITE BLOOD COUNT 11.1 10^3/ul (4.8-10.8)
[2017-11-20 06:25] LABS: ANION GAP 13 (8-16); BLOOD UREA NITROGEN 37 mg/dl (7-20); CALCIUM 7.9 mg/dl (8.4-10.2); CARBON DIOXIDE 25 mmol/L (21-31); CHLORIDE 102 mmol/L (97-110); CREATININE 4.99 mg/dl (0.44-1.00); GLUCOSE 106 mg/dl (70-220); POTASSIUM 4.2 mmol/L (3.5-5.1); SODIUM 136 mmol/L (135-144)
[2017-11-20 06:28] LABS: PHOSPHORUS 4.2 mg/dl (2.5-4.9)
[2017-11-20 06:28] LABS: MAGNESIUM 1.9 mg/dl (1.7-2.5)
[2017-11-20] MEDS: INSULIN ASPART [NOVOLOG] 3 ML PEN SC ×8 (07:50→21:00)
[2017-11-20] MEDS: GUAIFENESIN/DM 5ML CUP PO (08:32)
[2017-11-20] MEDS: POLYETHYLENE GLYCOL 17 GM PACKET PO (08:33)
[2017-11-20] MEDS: SENNA TAB PO ×2 (08:33→21:19)
[2017-11-20] MEDS: SEVELAMER 400 MG TAB PO ×4 (08:33→17:34)
[2017-11-20] MEDS: CLOPIDOGREL 75 MG TAB PO (08:33)
[2017-11-20] MEDS: ISOSORBIDE MONONITRATE(SR)60 MG TAB PO (08:33)
[2017-11-20] MEDS: FISH OIL 1,000 MG CAP PO (08:33)
[2017-11-20] MEDS: NIFEdipine (XL) 60 MG TAB PO ×2 (08:34→21:20)
[2017-11-20] MEDS: HEPARIN 5,000 UNIT/0.5 ML VIAL SC ×2 (08:37→21:24)
[2017-11-20] MEDS: INSULIN GLARGINE [LANtus] 3 ML PEN SC (08:42)
[2017-11-20] MEDS: EPOETIN 3000 UNITS/1 ML INJ (ESRD) SC (17:35)
[2017-11-20] MEDS: ALTEPLASE (CATHFLO) 2 MG INJ CATHETER ×2 (20:54→20:56)
[2017-11-20] MEDS: ATORVASTATIN 80 MG TAB PO (21:19)
[2017-11-21] MEDS: GUAIFENESIN/DM 5ML CUP PO (03:52)
[2017-11-21 05:21] LABS: ADD MAN DIFF? NO
[2017-11-21 05:23] LABS: WHITE BLOOD COUNT 10.8 10^3/ul (4.8-10.8)
[2017-11-21 05:23] LABS: BASOPHIL # 0.1 10^3/ul (0.0-0.1); BASOPHILS % 0.5 % (0.0-2.0); EOSINOPHILS # 0.3 10^3/ul (0.0-0.5); EOSINOPHILS % 2.5 % (0.0-7.0); HEMATOCRIT 25.6 % (37.0-47.0); HEMOGLOBIN 8.6 g/dl (12.0-16.0); LYMPHOCYTES # 3.2 10^3/ul (0.8-2.9); MEAN CORPUSCULAR HEMOGLOBIN 28.3 pg (29.0-33.0); MEAN CORPUSCULAR HGB CONC 33.6 g/dl (32.0-37.0); MEAN CORPUSCULAR VOLUME 84.2 fl (82.0-101.0); MEAN PLATELET VOLUME 12.4 fl (7.4-10.4); MONOCYTE # 0.6 10^3/ul (0.3-0.9); MONOCYTES % 5.9 % (0.0-11.0); NEUTROPHIL # 6.6 10^3/ul (1.6-7.5); NEUTROPHILS % 60.7 % (39.0-77.0); PLATELET COUNT 286 10^3/UL (140-415); RED BLOOD COUNT 3.04 10^6/ul (4.20-5.40); RED CELL DISTRIBUTION WIDTH 13.6 % (11.5-14.5)
[2017-11-21 05:55] LABS: ANION GAP 16 (8-16); BLOOD UREA NITROGEN 47 mg/dl (7-20); CARBON DIOXIDE 22 mmol/L (21-31); CHLORIDE 101 mmol/L (97-110); CREATININE 5.13 mg/dl (0.44-1.00); GLUCOSE 147 mg/dl (70-220); POTASSIUM 3.9 mmol/L (3.5-5.1); SODIUM 135 mmol/L (135-144)
[2017-11-21] MEDS: HYDROCODONE/APAP (5/325) TAB PO (06:36)
[2017-11-21] MEDS: CLOPIDOGREL 75 MG TAB PO (09:00)
[2017-11-21] MEDS: INSULIN ASPART [NOVOLOG] 3 ML PEN SC ×9 (09:00→20:30)
[2017-11-21] MEDS: NIFEdipine (XL) 60 MG TAB PO ×2 (09:00→20:57)
[2017-11-21] MEDS: ISOSORBIDE MONONITRATE(SR)60 MG TAB PO (09:00)
[2017-11-21] MEDS: SENNA TAB PO ×2 (09:33→21:08)
[2017-11-21] MEDS: SEVELAMER 400 MG TAB PO ×3 (09:33→18:25)
[2017-11-21] MEDS: FISH OIL 1,000 MG CAP PO (09:33)
[2017-11-21] MEDS: POLYETHYLENE GLYCOL 17 GM PACKET PO (09:35)
[2017-11-21] MEDS: HEPARIN 5,000 UNIT/0.5 ML VIAL SC ×2 (09:36→21:07)
[2017-11-21] MEDS: INSULIN GLARGINE [LANtus] 3 ML PEN SC (09:39)
[2017-11-21] MEDS: HEPARIN 1000 UNITS/ML 10 ML INJ CATHETER (12:22)
[2017-11-21] MEDS: ATORVASTATIN 80 MG TAB PO (20:55)
[2017-11-22] MEDS: ACCU-CHEK XX (02:00)
[2017-11-22 05:52] LABS: ADD MAN DIFF? NO
[2017-11-22 05:57] LABS: WHITE BLOOD COUNT 11.4 10^3/ul (4.8-10.8)
[2017-11-22 05:57] LABS: BASOPHILS % 0.4 % (0.0-2.0); EOSINOPHILS # 0.3 10^3/ul (0.0-0.5); EOSINOPHILS % 2.3 % (0.0-7.0); HEMOGLOBIN 8.3 g/dl (12.0-16.0); LYMPHOCYTES # 3.2 10^3/ul (0.8-2.9); LYMPHOCYTES % 28.3 % (15.0-51.0); MEAN CORPUSCULAR HEMOGLOBIN 27.5 pg (29.0-33.0); MEAN CORPUSCULAR HGB CONC 31.9 g/dl (32.0-37.0); MEAN CORPUSCULAR VOLUME 86.1 fl (82.0-101.0); MEAN PLATELET VOLUME 12.6 fl (7.4-10.4); MONOCYTE # 0.8 10^3/ul (0.3-0.9); MONOCYTES % 7.4 % (0.0-11.0); NEUTROPHIL # 6.9 10^3/ul (1.6-7.5); PLATELET COUNT 314 10^3/UL (140-415); RED BLOOD COUNT 3.02 10^6/ul (4.20-5.40); RED CELL DISTRIBUTION WIDTH 13.6 % (11.5-14.5)
[2017-11-22 06:15] LABS: ANION GAP 12 (8-16); BLOOD UREA NITROGEN 29 mg/dl (7-20); CALCIUM 7.7 mg/dl (8.4-10.2); CARBON DIOXIDE 28 mmol/L (21-31); CHLORIDE 103 mmol/L (97-110); CREATININE 3.98 mg/dl (0.44-1.00); GLUCOSE 110 mg/dl (70-220); PHOSPHORUS 4.5 mg/dl (2.5-4.9); SODIUM 139 mmol/L (135-144)
[2017-11-22] MEDS: ISOSORBIDE MONONITRATE(SR)60 MG TAB PO (08:26)
[2017-11-22] MEDS: NIFEdipine (XL) 60 MG TAB PO ×2 (08:26→21:00)
[2017-11-22] MEDS: SENNA TAB PO ×2 (09:00→20:55)
[2017-11-22] MEDS: POLYETHYLENE GLYCOL 17 GM PACKET PO (09:00)
[2017-11-22] MEDS: SEVELAMER 400 MG TAB PO ×3 (09:11→18:09)
[2017-11-22] MEDS: FISH OIL 1,000 MG CAP PO (09:11)
[2017-11-22] MEDS: CLOPIDOGREL 75 MG TAB PO (09:11)
[2017-11-22] MEDS: INSULIN ASPART [NOVOLOG] 3 ML PEN SC ×7 (09:13→21:00)
[2017-11-22] MEDS: INSULIN GLARGINE [LANtus] 3 ML PEN SC (09:15)
[2017-11-22] MEDS: HEPARIN 5,000 UNIT/0.5 ML VIAL SC ×2 (09:15→21:18)
[2017-11-22] MEDS: EPOETIN 3000 UNITS/1 ML INJ (ESRD) SC (18:10)
[2017-11-22] MEDS: ATORVASTATIN 80 MG TAB PO (20:55)
[2017-11-23] MEDS: HEPARIN 1000 UNITS/ML 10 ML INJ CATHETER (00:42)
[2017-11-23] MEDS: NIFEdipine (XL) 60 MG TAB PO ×3 (00:47→20:41)
[2017-11-23] MEDS: ACCU-CHEK XX (02:00)
[2017-11-23] MEDS: ZOLPIDEM 5 MG TAB PO (02:15)
[2017-11-23] MEDS: CLOPIDOGREL 75 MG TAB PO (09:22)
[2017-11-23] MEDS: ISOSORBIDE MONONITRATE(SR)60 MG TAB PO (09:23)
[2017-11-23] MEDS: FISH OIL 1,000 MG CAP PO (09:23)
[2017-11-23] MEDS: POLYETHYLENE GLYCOL 17 GM PACKET PO (09:24)
[2017-11-23] MEDS: SENNA TAB PO ×2 (09:24→20:41)
[2017-11-23] MEDS: SEVELAMER 400 MG TAB PO ×3 (09:24→18:53)
[2017-11-23] MEDS: HEPARIN 5,000 UNIT/0.5 ML VIAL SC ×2 (09:27→20:47)
[2017-11-23] MEDS: INSULIN ASPART [NOVOLOG] 3 ML PEN SC ×7 (09:28→20:47)
[2017-11-23] MEDS: INSULIN GLARGINE [LANtus] 3 ML PEN SC (09:30)
[2017-11-23] MEDS: ATORVASTATIN 80 MG TAB PO (20:41)
[2017-11-24] MEDS: ZOLPIDEM 5 MG TAB PO ×2 (00:19→21:42)
[2017-11-24] MEDS: ACCU-CHEK XX (02:00)
[2017-11-24] MEDS: SEVELAMER 400 MG TAB PO ×3 (08:58→18:02)
[2017-11-24] MEDS: FISH OIL 1,000 MG CAP PO (08:59)
[2017-11-24] MEDS: ISOSORBIDE MONONITRATE(SR)60 MG TAB PO (08:59)
[2017-11-24] MEDS: CLOPIDOGREL 75 MG TAB PO (09:00)
[2017-11-24] MEDS: NIFEdipine (XL) 60 MG TAB PO ×2 (09:00→20:51)
[2017-11-24] MEDS: POLYETHYLENE GLYCOL 17 GM PACKET PO (09:00)
[2017-11-24] MEDS: SENNA TAB PO ×2 (09:00→20:50)
[2017-11-24] MEDS: HEPARIN 5,000 UNIT/0.5 ML VIAL SC ×2 (09:03→20:57)
[2017-11-24] MEDS: INSULIN ASPART [NOVOLOG] 3 ML PEN SC ×7 (09:04→21:00)
[2017-11-24] MEDS: INSULIN GLARGINE [LANtus] 3 ML PEN SC (09:05)
[2017-11-24] MEDS: LISINOPRIL 20 MG TAB PO (12:44)
[2017-11-24] MEDS: GUAIFENESIN/DM 5ML CUP PO ×3 (12:52→21:42)
[2017-11-24] MEDS: ALBUTEROL 0.083% (NEB) 2.5 MG/3 ML AMP HHN ×3 (13:52→20:00)
[2017-11-24] MEDS: DOCUSATE SODIUM 100 MG CAP PO ×2 (14:00→20:49)
[2017-11-24] MEDS: ATORVASTATIN 80 MG TAB PO (20:49)
[2017-11-25] MEDS: ALBUTEROL 0.083% (NEB) 2.5 MG/3 ML AMP HHN ×6 (01:26→20:22)
[2017-11-25] MEDS: ACCU-CHEK XX (02:00)
[2017-11-25 05:16] LABS: ADD MAN DIFF? NO
[2017-11-25 05:25] LABS: WHITE BLOOD COUNT 11.4 10^3/ul (4.8-10.8)
[2017-11-25 05:25] LABS: BASOPHIL # 0.1 10^3/ul (0.0-0.1); BASOPHILS % 0.5 % (0.0-2.0); EOSINOPHILS # 0.4 10^3/ul (0.0-0.5); EOSINOPHILS % 3.2 % (0.0-7.0); HEMATOCRIT 26.6 % (37.0-47.0); HEMOGLOBIN 8.7 g/dl (12.0-16.0); LYMPHOCYTES # 2.9 10^3/ul (0.8-2.9); LYMPHOCYTES % 25.2 % (15.0-51.0); MEAN CORPUSCULAR HGB CONC 32.7 g/dl (32.0-37.0); MEAN CORPUSCULAR VOLUME 85.5 fl (82.0-101.0); MEAN PLATELET VOLUME 11.4 fl (7.4-10.4); MONOCYTE # 0.6 10^3/ul (0.3-0.9); MONOCYTES % 5.5 % (0.0-11.0); NEUTROPHIL # 7.5 10^3/ul (1.6-7.5); NEUTROPHILS % 65.3 % (39.0-77.0); PLATELET COUNT 397 10^3/UL (140-415); RED BLOOD COUNT 3.11 10^6/ul (4.20-5.40); RED CELL DISTRIBUTION WIDTH 13.4 % (11.5-14.5)
[2017-11-25 06:16] LABS: ANION GAP 15 (8-16); BLOOD UREA NITROGEN 30 mg/dl (7-20); CALCIUM 8.3 mg/dl (8.4-10.2); CARBON DIOXIDE 24 mmol/L (21-31); CHLORIDE 106 mmol/L (97-110); CREATININE 4.67 mg/dl (0.44-1.00); GLUCOSE 120 mg/dl (70-220); MAGNESIUM 2.2 mg/dl (1.7-2.5); SODIUM 141 mmol/L (135-144)
[2017-11-25] MEDS: INSULIN ASPART [NOVOLOG] 3 ML PEN SC ×7 (07:50→21:41)
[2017-11-25] MEDS: SEVELAMER 400 MG TAB PO ×3 (07:50→17:26)
[2017-11-25] MEDS: INSULIN GLARGINE [LANtus] 3 ML PEN SC (08:00)
[2017-11-25] MEDS: HEPARIN 5,000 UNIT/0.5 ML VIAL SC ×2 (08:52→21:41)
[2017-11-25] MEDS: LISINOPRIL 20 MG TAB PO (08:52)
[2017-11-25] MEDS: NIFEdipine (XL) 60 MG TAB PO ×2 (08:53→21:38)
[2017-11-25] MEDS: ISOSORBIDE MONONITRATE(SR)60 MG TAB PO (08:53)
[2017-11-25] MEDS: CLOPIDOGREL 75 MG TAB PO (08:53)
[2017-11-25] MEDS: FISH OIL 1,000 MG CAP PO (08:53)
[2017-11-25] MEDS: SENNA TAB PO ×2 (08:53→21:35)
[2017-11-25] MEDS: POLYETHYLENE GLYCOL 17 GM PACKET PO (08:53)
[2017-11-25] MEDS: DOCUSATE SODIUM 100 MG CAP PO ×2 (08:54→21:36)
[2017-11-25] MEDS: ALTEPLASE (CATHFLO) 2 MG INJ CATHETER ×2 (09:51→09:52)
[2017-11-25] MEDS ORDERED: HEPARIN 1000 UNITS/ML 10 ML INJ (16:15)
[2017-11-25] MEDS ORDERED: LIDOCAINE 1% (MDV) 20 ML INJ (16:15)
[2017-11-25] MEDS ORDERED: MIDAZOLAM 1 MG/ML 2 ML INJ (16:30)
[2017-11-25] MEDS ORDERED: FENTAnyl 50 MCG/ML VIAL (16:30)
[2017-11-25] MEDS: HYDROCODONE/APAP (5/325) TAB PO ×2 (17:27→23:31)
[2017-11-25] MEDS: EPOETIN 3000 UNITS/1 ML INJ (ESRD) SC (18:35)
[2017-11-25] MEDS: ATORVASTATIN 80 MG TAB PO (21:36)
[2017-11-25] MEDS: ZOLPIDEM 5 MG TAB PO (23:09)
[2017-11-26] MEDS: ALBUTEROL 0.083% (NEB) 2.5 MG/3 ML AMP HHN ×6 (01:01→21:32)
[2017-11-26] MEDS: ACCU-CHEK XX (02:00)
[2017-11-26] MEDS: ONDANSETRON 4 MG INJ IV ×2 (05:50→22:09)
[2017-11-26] MEDS: HYDROCODONE/APAP (5/325) TAB PO (05:50)
[2017-11-26] MEDS: GUAIFENESIN/DM 5ML CUP PO ×2 (05:50→20:58)
[2017-11-26 05:57] LABS: ADD MAN DIFF? NO; BASOPHIL # 0.1 10^3/ul (0.0-0.1); BASOPHILS % 0.9 % (0.0-2.0); EOSINOPHILS # 0.3 10^3/ul (0.0-0.5); EOSINOPHILS % 3.7 % (0.0-7.0); HEMOGLOBIN 8.6 g/dl (12.0-16.0); LYMPHOCYTES # 2.4 10^3/ul (0.8-2.9); LYMPHOCYTES % 26.2 % (15.0-51.0); MEAN CORPUSCULAR HEMOGLOBIN 27.1 pg (29.0-33.0); MEAN CORPUSCULAR HGB CONC 31.9 g/dl (32.0-37.0); MEAN CORPUSCULAR VOLUME 85.2 fl (82.0-101.0); MEAN PLATELET VOLUME 11.3 fl (7.4-10.4); MONOCYTE # 0.7 10^3/ul (0.3-0.9); MONOCYTES % 7.2 % (0.0-11.0); NEUTROPHIL # 5.6 10^3/ul (1.6-7.5); NEUTROPHILS % 61.7 % (39.0-77.0); PLATELET COUNT 371 10^3/UL (140-415); RED BLOOD COUNT 3.17 10^6/ul (4.20-5.40); RED CELL DISTRIBUTION WIDTH 13.2 % (11.5-14.5)
[2017-11-26 06:21] LABS: ANION GAP 13 (8-16); BLOOD UREA NITROGEN 22 mg/dl (7-20); CARBON DIOXIDE 28 mmol/L (21-31); CHLORIDE 103 mmol/L (97-110); CREATININE 3.54 mg/dl (0.44-1.00); GLUCOSE 191 mg/dl (70-220); POTASSIUM 3.8 mmol/L (3.5-5.1); SODIUM 140 mmol/L (135-144)
[2017-11-26] MEDS: SEVELAMER 400 MG TAB PO ×3 (08:57→17:50)
[2017-11-26] MEDS: NIFEdipine (XL) 60 MG TAB PO ×2 (08:58→20:59)
[2017-11-26] MEDS: DOCUSATE SODIUM 100 MG CAP PO ×2 (08:58→20:58)
[2017-11-26] MEDS: FISH OIL 1,000 MG CAP PO (08:58)
[2017-11-26] MEDS: LISINOPRIL 20 MG TAB PO (08:58)
[2017-11-26] MEDS: SENNA TAB PO ×2 (08:58→20:58)
[2017-11-26] MEDS: ISOSORBIDE MONONITRATE(SR)60 MG TAB PO (08:59)
[2017-11-26] MEDS: POLYETHYLENE GLYCOL 17 GM PACKET PO (09:00)
[2017-11-26] MEDS: INSULIN GLARGINE [LANtus] 3 ML PEN SC (09:01)
[2017-11-26] MEDS: INSULIN ASPART [NOVOLOG] 3 ML PEN SC ×7 (09:02→20:58)
[2017-11-26] MEDS: HEPARIN 5,000 UNIT/0.5 ML VIAL SC ×2 (09:03→22:09)
[2017-11-26] MEDS: CLOPIDOGREL 75 MG TAB PO (09:14)
[2017-11-26] MEDS: ATORVASTATIN 80 MG TAB PO (20:58)
[2017-11-27] MEDS: ALBUTEROL 0.083% (NEB) 2.5 MG/3 ML AMP HHN ×6 (00:18→20:21)
[2017-11-27] MEDS: ACCU-CHEK XX (00:45)
[2017-11-27] MEDS: HYDROCODONE/APAP (5/325) TAB PO ×2 (01:43→21:07)
[2017-11-27] MEDS: ZOLPIDEM 5 MG TAB PO (01:43)
[2017-11-27 05:38] LABS: ADD MAN DIFF? NO
[2017-11-27 05:49] LABS: BASOPHIL # 0.1 10^3/ul (0.0-0.1); BASOPHILS % 0.5 % (0.0-2.0); EOSINOPHILS # 0.4 10^3/ul (0.0-0.5); EOSINOPHILS % 3.4 % (0.0-7.0); HEMATOCRIT 27.1 % (37.0-47.0); HEMOGLOBIN 8.7 g/dl (12.0-16.0); LYMPHOCYTES # 2.9 10^3/ul (0.8-2.9); LYMPHOCYTES % 26.8 % (15.0-51.0); MEAN CORPUSCULAR HEMOGLOBIN 27.2 pg (29.0-33.0); MEAN CORPUSCULAR HGB CONC 32.1 g/dl (32.0-37.0); MEAN CORPUSCULAR VOLUME 84.7 fl (82.0-101.0); MEAN PLATELET VOLUME 11.1 fl (7.4-10.4); MONOCYTE # 0.6 10^3/ul (0.3-0.9); MONOCYTES % 5.7 % (0.0-11.0); NEUTROPHIL # 6.9 10^3/ul (1.6-7.5); NEUTROPHILS % 63.2 % (39.0-77.0); PLATELET COUNT 402 10^3/UL (140-415); RED CELL DISTRIBUTION WIDTH 13.2 % (11.5-14.5)
[2017-11-27 05:49] LABS: WHITE BLOOD COUNT 10.9 10^3/ul (4.8-10.8)
[2017-11-27 05:57] LABS: ANION GAP 13 (8-16); BLOOD UREA NITROGEN 26 mg/dl (7-20); CALCIUM 8.4 mg/dl (8.4-10.2); CARBON DIOXIDE 27 mmol/L (21-31); CHLORIDE 105 mmol/L (97-110); GLUCOSE 143 mg/dl (70-220); POTASSIUM 3.7 mmol/L (3.5-5.1); SODIUM 141 mmol/L (135-144)
[2017-11-27] MEDS: POLYETHYLENE GLYCOL 17 GM PACKET PO (09:00)
[2017-11-27] MEDS: HEPARIN 5,000 UNIT/0.5 ML VIAL SC ×2 (09:00→21:10)
[2017-11-27] MEDS: DOCUSATE SODIUM 100 MG CAP PO ×2 (09:07→21:07)
[2017-11-27] MEDS: CLOPIDOGREL 75 MG TAB PO (09:07)
[2017-11-27] MEDS: SEVELAMER 400 MG TAB PO ×3 (09:07→18:40)
[2017-11-27] MEDS: FISH OIL 1,000 MG CAP PO (09:07)
[2017-11-27] MEDS: SENNA TAB PO ×2 (09:07→21:07)
[2017-11-27] MEDS: INSULIN GLARGINE [LANtus] 3 ML PEN SC (09:28)
[2017-11-27] MEDS: INSULIN ASPART [NOVOLOG] 3 ML PEN SC ×7 (09:28→21:00)
[2017-11-27] MEDS: LISINOPRIL 20 MG TAB PO (15:47)
[2017-11-27] MEDS: NIFEdipine (XL) 60 MG TAB PO ×2 (15:47→21:08)
[2017-11-27] MEDS: HEPARIN 1000 UNITS/ML 10 ML INJ CATHETER (16:40)
[2017-11-27] MEDS: ISOSORBIDE MONONITRATE(SR)60 MG TAB PO (17:34)
[2017-11-27] MEDS: EPOETIN 3000 UNITS/1 ML INJ (ESRD) SC (18:08)
[2017-11-27] MEDS: ATORVASTATIN 80 MG TAB PO (21:07)
[2017-11-28] MEDS: ZOLPIDEM 5 MG TAB PO (00:07)
[2017-11-28] MEDS: ALBUTEROL 0.083% (NEB) 2.5 MG/3 ML AMP HHN ×5 (01:33→17:30)
[2017-11-28] MEDS: ACCU-CHEK XX (01:36)
[2017-11-28] MEDS: ONDANSETRON 4 MG INJ IV (06:23)
[2017-11-28] MEDS: INSULIN ASPART [NOVOLOG] 3 ML PEN SC ×6 (08:50→17:55)
[2017-11-28] MEDS: FISH OIL 1,000 MG CAP PO (09:07)
[2017-11-28] MEDS: CLOPIDOGREL 75 MG TAB PO (09:07)
[2017-11-28] MEDS: POLYETHYLENE GLYCOL 17 GM PACKET PO (09:07)
[2017-11-28] MEDS: DOCUSATE SODIUM 100 MG CAP PO (09:07)
[2017-11-28] MEDS: SEVELAMER 400 MG TAB PO ×3 (09:07→17:55)
[2017-11-28] MEDS: SENNA TAB PO (09:08)
[2017-11-28] MEDS: NIFEdipine (XL) 60 MG TAB PO (09:09)
[2017-11-28] MEDS: LISINOPRIL 20 MG TAB PO (09:09)
[2017-11-28] MEDS: HEPARIN 5,000 UNIT/0.5 ML VIAL SC (09:23)
[2017-11-28] MEDS: INSULIN GLARGINE [LANtus] 3 ML PEN SC (09:24)
[2017-11-28] MEDS: ISOSORBIDE MONONITRATE(SR)60 MG TAB PO (13:11)
[2017-11-28 15:47] LABS: HEPATITIS C VIRAL ANTIBODY NEGATIVE (NEGATIVE)
== END 2017-11-28 18:45 | disposition home health service (06) | DRG 673 ==
LOC: MS3 11-05 00:49 → MS2 11-10 03:38 → MS4 11-12 00:55 → E/R 19:29 → MS3 11-10 08:28 → MS1 11-17 11:15
PROC: 06HM33Z Insertion of Infusion Device into Right Femoral Vein, Percutaneous Approach (ICD-10-PCS; principal; 2017-11-07 17:00)
PROC: 5A1D70Z Performance of Urinary Filtration, Intermittent, Less than 6 Hours Per Day (ICD-10-PCS; 2017-11-07 17:00)
PROC: 0JH60XZ Insertion of Tunneled Vascular Access Device into Chest Subcutaneous Tissue and Fascia, Open Approach (ICD-10-PCS; 2017-11-07 17:32)
PROC: 4A023N7 Measurement of Cardiac Sampling and Pressure, Left Heart, Percutaneous Approach (ICD-10-PCS; 2017-11-07 17:32)
PROC: B2011ZZ Plain Radiography of Multiple Coronary Arteries using Low Osmolar Contrast (ICD-10-PCS; 2017-11-07 17:32)
PROC: B2051ZZ Plain Radiography of Left Heart using Low Osmolar Contrast (ICD-10-PCS; 2017-11-07 17:32)
PROC: 05HM33Z Insertion of Infusion Device into Right Internal Jugular Vein, Percutaneous Approach (ICD-10-PCS; 2017-11-07 17:32)
DX: I12.9 Hypertensive chronic kidney disease with stage 1 through stage 4 chronic kidney disease, or unspecified chronic kidney disease (principal); I21.A1 Myocardial infarction type 2; I50.31 Acute diastolic (congestive) heart failure; N17.0 Acute kidney failure with tubular necrosis; I16.9 Hypertensive crisis, unspecified; N17.9 Acute kidney failure, unspecified; N18.4 Chronic kidney disease, stage 4 (severe); N18.5 Chronic kidney disease, stage 5; R65.10 Systemic inflammatory response syndrome (SIRS) of non-infectious origin without acute organ dysfunction; E11.22 Type 2 diabetes mellitus with diabetic chronic kidney disease; N18.9 Chronic kidney disease, unspecified; Z99.2 Dependence on renal dialysis; Z91.19 Patient's noncompliance with other medical treatment and regimen; E11.65 Type 2 diabetes mellitus with hyperglycemia; D32.0 Benign neoplasm of cerebral meninges; E87.6 Hypokalemia; H40.9 Unspecified glaucoma; R60.9 Edema, unspecified; M79.602 Pain in left arm; E11.21 Type 2 diabetes mellitus with diabetic nephropathy; E11.319 Type 2 diabetes mellitus with unspecified diabetic retinopathy without macular edema; D64.9 Anemia, unspecified; E02 Subclinical iodine-deficiency hypothyroidism; R50.9 Fever, unspecified; E66.9 Obesity, unspecified; Z68.36 Body mass index [BMI] 36.0-36.9, adult
CPT/HCPCS: 36415; 70450; 70551; 71045; 76775; 76937; 78582; 80048; 80053; 80061; 81001; 81003; 82540; 82550; 82553; 82962; 83036; 83735; 83880; 83930; 83935; 84100; 84155; 84300; 84439; 84443; 84484; 85025; 85378; 85610; 85730; 86706; 86803; 87040; 87086; 87340; 90935; 93005; 93306; 93458; 93970; 93971; 94640; 94664; 96374; 96375; 96376; 97110; 97116; 97162; 99291-25

== ENCOUNTER 2017-12-01 18:23 | Emergency (ER) | payer OTHER ==
[2017-12-01 18:56] LABS: ADD MAN DIFF? NO
[2017-12-01 18:58] LABS: BASOPHIL # 0.1 10^3/ul (0.0-0.1); BASOPHILS % 0.9 % (0.0-2.0); EOSINOPHILS # 0.3 10^3/ul (0.0-0.5); EOSINOPHILS % 2.6 % (0.0-7.0); HEMOGLOBIN 10.4 g/dl (12.0-16.0); LYMPHOCYTES % 17.4 % (15.0-51.0); MEAN CORPUSCULAR HEMOGLOBIN 26.7 pg (29.0-33.0); MEAN CORPUSCULAR HGB CONC 32.5 g/dl (32.0-37.0); MEAN CORPUSCULAR VOLUME 82.3 fl (82.0-101.0); MEAN PLATELET VOLUME 10.1 fl (7.4-10.4); MONOCYTE # 0.8 10^3/ul (0.3-0.9); MONOCYTES % 7.4 % (0.0-11.0); NEUTROPHILS % 71.3 % (39.0-77.0); PLATELET COUNT 530 10^3/UL (140-415); RED BLOOD COUNT 3.89 10^6/ul (4.20-5.40); RED CELL DISTRIBUTION WIDTH 13.4 % (11.5-14.5)
[2017-12-01 18:58] LABS: WHITE BLOOD COUNT 11.2 10^3/ul (4.8-10.8)
[2017-12-01 19:17] LABS: INR 1.08; PROTIME 14.1 Sec (11.9-14.9); PT RATIO 1.1
[2017-12-01 19:19] LABS: PARTIAL THROMBOPLASTIN TIME 47.7 Sec (25.0-35.0)
[2017-12-01 19:21] LABS: ANION GAP 11 (8-16); BLOOD UREA NITROGEN 13 mg/dl (7-20); CALCIUM 8.3 mg/dl (8.4-10.2); CARBON DIOXIDE 30 mmol/L (21-31); CHLORIDE 99 mmol/L (97-110); CREATININE 2.12 mg/dl (0.44-1.00); GLUCOSE 110 mg/dl (70-220); POTASSIUM 3.4 mmol/L (3.5-5.1); SODIUM 137 mmol/L (135-144)
[2017-12-01] MEDS: hydrALAzine 20 MG INJ IV (19:51)
== END 2017-12-01 20:19 | disposition home or self-care (01) ==
LOC: E/R 20:19
DX: I12.9 Hypertensive chronic kidney disease with stage 1 through stage 4 chronic kidney disease, or unspecified chronic kidney disease (principal); D64.9 Anemia, unspecified; E87.6 Hypokalemia; N18.9 Chronic kidney disease, unspecified; E11.9 Type 2 diabetes mellitus without complications; Z79.4 Long term (current) use of insulin; Z99.2 Dependence on renal dialysis
CPT/HCPCS: 36415; 80048; 82962; 85025; 85610; 85730; 96374; 99284-25

== ENCOUNTER 2018-04-21 12:04 | Emergency (ER) | payer MEDICARE, OTHER ==
[2018-04-21 12:58] LABS: URINE BLOOD (Dip) POC 1+ (NEGATIVE); URINE KETONES (Dip) POC Trace (NEGATIVE); URINE LEUKOCYTE EST (Dip) POC Negative (NEGATIVE); URINE NITRITE (Dip) POC Negative (NEGATIVE); URINE TOTAL PROTEIN POC 3+ (NEGATIVE)
[2018-04-21 13:02] LABS: ADD MAN DIFF? NO
[2018-04-21] MEDS: ONDANSETRON 4 MG INJ IV (13:03)
[2018-04-21] MEDS: morphine 2 MG INJ IV (13:04)
[2018-04-21 13:07] LABS: BASOPHIL # 0.1 10^3/ul (0.0-0.1); BASOPHILS % 0.8 % (0.0-2.0); EOSINOPHILS # 0.1 10^3/ul (0.0-0.5); HEMOGLOBIN 13.3 g/dl (12.0-16.0); LYMPHOCYTES # 3.1 10^3/ul (0.8-2.9); LYMPHOCYTES % 29.1 % (15.0-51.0); MEAN CORPUSCULAR HEMOGLOBIN 27.4 pg (29.0-33.0); MEAN CORPUSCULAR HGB CONC 32.4 g/dl (32.0-37.0); MEAN CORPUSCULAR VOLUME 84.5 fl (82.0-101.0); MEAN PLATELET VOLUME 11.2 fl (7.4-10.4); MONOCYTE # 0.7 10^3/ul (0.3-0.9); MONOCYTES % 6.6 % (0.0-11.0); NEUTROPHIL # 6.6 10^3/ul (1.6-7.5); NEUTROPHILS % 62.1 % (39.0-77.0); PLATELET COUNT 305 10^3/UL (140-415); RED BLOOD COUNT 4.85 10^6/ul (4.20-5.40); RED CELL DISTRIBUTION WIDTH 16.5 % (11.5-14.5)
[2018-04-21 13:07] LABS: WHITE BLOOD COUNT 10.7 10^3/ul (4.8-10.8)
[2018-04-21 13:25] LABS: ALANINE AMINOTRANSFERASE 20 IU/L (13-69); ALBUMIN 3.7 g/dl (3.3-4.9); ALBUMIN/GLOBULIN RATIO 0.92; ALKALINE PHOSPHATASE 87 IU/L (42-121); ANION GAP 15 (8-16); ASPARTATE AMINO TRANSFERASE 20 IU/L (15-46); BILIRUBIN,INDIRECT 0.3 mg/dl (0-1.1); BILIRUBIN,TOTAL 0.3 mg/dl (0.2-1.3); BLOOD UREA NITROGEN 42 mg/dl (7-20); CARBON DIOXIDE 28 mmol/L (21-31); CHLORIDE 98 mmol/L (97-110); CREATININE 3.94 mg/dl (0.44-1.00); GLUCOSE 236 mg/dl (70-220); LIPASE 81 U/L (23-300); POTASSIUM 3.6 mmol/L (3.5-5.1); SODIUM 137 mmol/L (135-144); TOTAL PROTEIN 7.7 g/dl (6.1-8.1)
[2018-04-21] MEDS: hydrALAzine 20 MG INJ IV (14:27)
== END 2018-04-21 15:13 | disposition home or self-care (01) ==
LOC: E/R 12:04
DX: M54.5 Low back pain (principal); I16.0 Hypertensive urgency; R31.9 Hematuria, unspecified; E11.22 Type 2 diabetes mellitus with diabetic chronic kidney disease; N18.9 Chronic kidney disease, unspecified; I12.9 Hypertensive chronic kidney disease with stage 1 through stage 4 chronic kidney disease, or unspecified chronic kidney disease; I25.10 Atherosclerotic heart disease of native coronary artery without angina pectoris; I50.9 Heart failure, unspecified; Z99.2 Dependence on renal dialysis; Z79.4 Long term (current) use of insulin
CPT/HCPCS: 36415; 80053; 81003; 83690; 85025; 96374; 96375; 99284-25

== ENCOUNTER 2019-01-28 14:30 | Emergency (ER) | payer MEDICARE, OTHER ==
[2019-01-28 14:49] LABS: ADD MAN DIFF? NO
[2019-01-28] MEDS: ONDANSETRON 4 MG INJ IV (14:53)
[2019-01-28] MEDS: morphine 4 MG/ML VIAL IV (14:53)
[2019-01-28 14:54] LABS: AADO2 Venous 54.1 mmHg; MODE ROOM AIR; MetHgb Venous 0.2 %; Sample Type Blood venous; Site OTHER; Venous COHb 0.8 %; Venous Oxygen Sat 84.8 mmHG (55.0-75.0)
[2019-01-28] MEDS: SOD CHLORIDE 0.9% 500 ML IV (14:54)
[2019-01-28 14:57] LABS: WHITE BLOOD COUNT 8.1 10^3/ul (4.8-10.8)
[2019-01-28 14:57] LABS: BASOPHIL # 0.1 10^3/ul (0.0-0.1); BASOPHILS % 0.7 % (0.0-2.0); EOSINOPHILS # 0.1 10^3/ul (0.0-0.5); EOSINOPHILS % 1.6 % (0.0-7.0); HEMATOCRIT 37.3 % (37.0-47.0); HEMOGLOBIN 11.8 g/dl (12.0-16.0); LYMPHOCYTES # 1.8 10^3/ul (0.8-2.9); LYMPHOCYTES % 22.3 % (15.0-51.0); MEAN CORPUSCULAR HEMOGLOBIN 27.3 pg (29.0-33.0); MEAN CORPUSCULAR HGB CONC 31.6 g/dl (32.0-37.0); MEAN CORPUSCULAR VOLUME 86.1 fl (82.0-101.0); MEAN PLATELET VOLUME 10.8 fl (7.4-10.4); MONOCYTE # 0.5 10^3/ul (0.3-0.9); MONOCYTES % 5.8 % (0.0-11.0); NEUTROPHIL # 5.6 10^3/ul (1.6-7.5); NEUTROPHILS % 69.4 % (39.0-77.0); PLATELET COUNT 324 10^3/UL (140-415); RED BLOOD COUNT 4.33 10^6/ul (4.20-5.40); RED CELL DISTRIBUTION WIDTH 14.5 % (11.5-14.5)
[2019-01-28 15:16] LABS: ALANINE AMINOTRANSFERASE 11 IU/L (13-69); ALBUMIN 3.7 g/dl (3.3-4.9); ALBUMIN/GLOBULIN RATIO 1.12; ALKALINE PHOSPHATASE 83 IU/L (42-121); ANION GAP 7 (5-13); ASPARTATE AMINO TRANSFERASE 16 IU/L (15-46); BILIRUBIN,INDIRECT 0.8 mg/dl (0-1.1); BILIRUBIN,TOTAL 0.8 mg/dl (0.2-1.3); BLOOD UREA NITROGEN 48 mg/dl (7-20); CALCIUM 8.8 mg/dl (8.4-10.2); CARBON DIOXIDE 30 mmol/L (21-31); CHLORIDE 99 mmol/L (97-110); CREATININE 6.74 mg/dl (0.44-1.00); Estimated GFR 6 mL/min (>60); GLUCOSE 322 mg/dl (70-220); LIPASE 208 U/L (23-300); MAGNESIUM 2.7 mg/dl (1.7-2.5); PHOSPHORUS 5.2 mg/dl (2.5-4.9); POTASSIUM 3.6 mmol/L (3.5-5.1); SODIUM 136 mmol/L (135-144)
[2019-01-28 15:27] LABS: TROPONIN-I < 0.012 ng/ml (0.000-0.120)
[2019-01-28] MEDS ORDERED: LABETALOL HCL 20MG INJ (15:33)
[2019-01-28] MEDS: LABETALOL HCL 20MG INJ IV (15:35)
[2019-01-28] MEDS ORDERED: hydrALAzine 20 MG INJ (16:03)
[2019-01-28] MEDS: hydrALAzine 20 MG INJ IV (16:06)
== END 2019-01-28 17:56 | disposition home or self-care (01) ==
LOC: E/R 14:30
DX: K80.20 Calculus of gallbladder without cholecystitis without obstruction (principal); I12.0 Hypertensive chronic kidney disease with stage 5 chronic kidney disease or end stage renal disease; N18.6 End stage renal disease; I16.0 Hypertensive urgency; R73.9 Hyperglycemia, unspecified; Z79.01 Long term (current) use of anticoagulants; Z79.4 Long term (current) use of insulin; Z99.2 Dependence on renal dialysis
CPT/HCPCS: 36415; 76705; 80053; 82803; 82962; 83690; 83735; 84100; 84484; 84703; 85025; 93005; 96374; 96375; 99285-25